=== PATIENT | female | born 1995 | race Caucasian/White ===

== ENCOUNTER 2016-12-30 17:02 | Emergency (ER) | payer OTHER ==
--- NOTE | 2016-12-30 17:58 | ER Document Report ---
ED GI/ - General Chief Complaint: Vaginal Itching Stated Complaint: ABDOMINAL PAIN Time Seen by Provider: 12/30/16 17:44 Mode of Arrival: Ambulatory Information source: Patient Notes: 21-year-old female presents to ED for complaint of nausea 3 days fever yesterday and the day before but not today and vaginal itching for 3 days. She states her last menstrual cycle was October 2016 but she has been trying to take test but can never get an answer on the test. TRAVEL OUTSIDE OF THE [place] IN LAST 30 DAYS: No - HPI Patient complains to provider of: Missed/Late menses, Other - Nausea and vaginal itching Onset: Other - 3 days Timing/Duration: Intermittent Quality of pain: No pain Pain Level: Denies Vaginal bleeding (Compared to normal period): None LMP: October 2016 Associated symptoms: Nausea, Other - Itching vaginal no pain Exacerbated by: Denies Relieved by: Denies Similar symptoms previously: Yes Recently seen / treated by doctor: No - Related Data Allergies/Adverse Reactions: codeine Allergy (Verified 12/30/16 17:22) cephalexin [From Keflex] Adverse Reaction (Severe, Verified 12/30/16 17:22) Past Medical History - General Information source: Patient - Social History Smoking Status: Never Smoker Cigarette use (# per day): No Chew tobacco use (# tins/day): No Smoking Education Provided: No Frequency of alcohol use: None Drug Abuse: None Lives with: Other - Retirement Family History: Arthritis, CAD, CVA, DM, Hyperlipidemia, Hypertension, Malignancy. denies: COPD, Thyroid Disfunction Patient has suicidal ideation: No Patient has homicidal ideation: No - Past Medical History Cardiac Medical History: Reports: None Pulmonary Medical History: Reports: None EENT Medical History: Reports: None Neurological Medical History: Reports: None Endocrine Medical History: Reports: None Renal/ Medical History: Reports: None Malignancy Medical History: Reports: None GI Medical History: Reports: None Musculoskeltal Medical History: Reports None Skin Medical History: Reports None Psychiatric Medical History: Reports: None Traumatic Medical History: Reports: None Infectious Medical History: Reports: None Surgical Hx: Negative Past Surgical History: Reports: None - Immunizations Hx Diphtheria, Pertussis, Tetanus Vaccination: Yes Review of Systems - Review of Systems Constitutional: No symptoms reported EENT: No symptoms reported Cardiovascular: No symptoms reported Respiratory: No symptoms reported Gastrointestinal: No symptoms reported Genitourinary: No symptoms reported Female Genitourinary: Last menstrual period - october 2016, Other - vaginal itching Musculoskeletal: No symptoms reported Skin: No symptoms reported Hematologic/Lymphatic: No symptoms reported Neurological/Psychological: No symptoms reported Physical Exam - Vital signs Vitals: Temp Pulse Resp BP Pulse Ox 98.8 F 88 18 128/80 H 100 12/30/16 17:24 12/30/16 17:24 12/30/16 17:24 12/30/16 17:24 12/30/16 17:24 Interpretation: Normal - General General appearance: Appears well, Alert - HEENT Head: Normocephalic, Atraumatic Eyes: Normal Pupils: PERRL - Respiratory Respiratory status: No respiratory distress Chest status: Nontender Breath sounds: Normal Chest palpation: Normal - Cardiovascular Rhythm: Regular Heart sounds: Normal auscultation Murmur: No - Abdominal Inspection: Normal Distension: No distension Bowel sounds: Normal Tenderness: Nontender Organomegaly: No organomegaly - Back Back: Normal, Nontender - Extremities General upper extremity: Normal inspection, Nontender, Normal color, Normal ROM , Normal temperature General lower extremity: Normal inspection, Nontender, Normal color, Normal ROM , Normal temperature, Normal weight bearing. No: Abdirahman's sign - Neurological Neuro grossly intact: Yes Cognition: Normal Orientation: AAOx4 [place] Coma Scale Eye Opening: Spontaneous [place] Coma Scale Verbal: Oriented [place] Coma Scale Motor: Obeys Commands [place] Coma Scale Total: 15 Speech: Normal Motor strength normal: LUE, RUE, LLE, RLE Sensory: Normal - Psychological Associated symptoms: Normal affect, Normal mood - Skin Skin Temperature: Warm Skin Moisture: Dry Skin Color: Normal Course - Vital Signs Vital signs: Temp Pulse Resp BP Pulse Ox 98.8 F 88 18 128/80 H 100 12/30/16 17:24 12/30/16 17:24 12/30/16 17:24 12/30/16 17:24 12/30/16 17:24 Discharge - Discharge Clinical Impression: Bacterial vaginosis Condition: Stable Disposition: HOME, SELF-CARE Additional Instructions: VAGINOSIS, BACTERIAL: Your exam shows you have bacterial vaginosis. This condition is due to an overgrowth of bacteria in the vagina. Symptoms may include vaginal itching or pain, a smelly discharge, and sometimes burning with urination. Normally this is not transmitted by sexual contact. Vaginosis can be treated with oral or topical antibiotics. Metronidazole ( Flagyl) pills are usually effective. Topical vaginal creams include Cleocin and Metro-Gel. You should avoid sexual contact until your symptoms are all better. Call the doctor if you develop pelvic pain, fever, or problems with urination, or if you don't improve as expected. METRONIDAZOLE: Metronidazole (Flagyl) has been prescribed. This medication is used to kill a type of bacteria called anaerobes, and protozoan parasites such as trichomonas and Giardia. Flagyl often causes a metallic taste in the mouth and mild nausea. Do not use alcohol in any form with Flagyl (including alcohol in medication elixirs). Flagyl interacts with alcohol to cause flushing, palpitations, headache, stomach cramps, and vomiting. Do not use Flagyl if you are taking Antabuse (disulfiram). Call the doctor at once if you develop rash, shortness of breath, itching, or lightheadedness. FOLLOW-UP CARE: If you have been referred to a physician for follow-up care, call the physician s office for an appointment as you were instructed or within the next two days. If you experience worsening or a significant change in your symptoms, notify the physician immediately or return to the Emergency Department at any time for re-evaluation. Prescriptions: Metronidazole [Flagyl 500 mg Tablet] 500 mg PO BID #14 tablet Forms: Return to Work
[2016-12-30 18:27] LABS: APPEARANCE,URINE SLIGHTLY-CLOUDY; BILIRUBIN,URINE NEGATIVE (NEGATIVE); GLUCOSE, URINE NEGATIVE (NEGATIVE); KETONES,URINE NEGATIVE (NEGATIVE); LEUKOCYTE ESTERASE,URINE NEGATIVE (NEGATIVE); NITRITE,URINE NEGATIVE (NEGATIVE); PROTEIN,URINE NEGATIVE (NEGATIVE); URINE SPECIFIC GRAVITY 1.013; UROBILINOGEN,URINE NEGATIVE mg/dL (<2.0)
[2016-12-30] MEDS ORDERED: METRONIDAZOLE 500 MG TABLET PO ONE (18:33)
[2016-12-30 21:23] VITALS: BP 121/59
== END 2016-12-30 19:30 | disposition home or self-care (01) ==
LOC: ER 17:02
DX: N76.0 Acute vaginitis (principal); B96.89 Other specified bacterial agents as the cause of diseases classified elsewhere; R11.0 Nausea; Z88.5 Allergy status to narcotic agent
CPT/HCPCS: 81001; 81025; 87210; 99284

== ENCOUNTER 2017-01-05 11:00 | Emergency (ER) | payer OTHER ==
--- NOTE | 2017-01-05 12:15 | RADIOLOGY REPORT (SQ) ---
EXAM DESCRIPTION: KNEE RIGHT 4 VIEWS COMPLETED DATE/TIME: 01/05/2017 12:07 pm REASON FOR STUDY: injury COMPARISON: None. NUMBER OF VIEWS: Four views. TECHNIQUE: AP, lateral, and both oblique radiographic images acquired of the right knee. LIMITATIONS: None. FINDINGS: MINERALIZATION: Normal. BONES: No acute fracture or dislocation. No worrisome bone lesions. JOINT: No effusion. SOFT TISSUES: No soft tissue swelling. No radio-opaque foreign body. OTHER: No other significant finding. IMPRESSION: NEGATIVE STUDY OF THE RIGHT KNEE. NO RADIOGRAPHIC EVIDENCE OF ACUTE INJURY. TECHNICAL DOCUMENTATION: JOB ID: [id number] [employer]- All Rights Reserved
--- NOTE | 2017-01-05 12:47 | ER Document Report ---
HPI - HPI Patient complains to provider of: right knee injury Onset: Just prior to arrival Onset/Duration: Sudden Quality of pain: Throbbing Severity: Severe Pain Level: 5 Context: Patient states she was reaching up for something and her right knee popped out of place. Has a history of right knee dislocations. Complains of pain, unable to bear weight. Patient states that she has a history of torn meniscus in the right knee which not been repaired because the tear was not bad enough per her orthopedist. Associated Symptoms: None Exacerbated by: Movement, Walking Relieved by: Denies Similar symptoms previously: Yes Recently seen / treated by doctor: No - ROS ROS below otherwise negative: Yes Systems Reviewed and Negative: Yes All other systems reviewed and negative - CONSTITUTIONAL Constitutional: DENIES: Fever - EENT EENT: DENIES: Congestion - NEURO Neurology: DENIES: Headache - CARDIOVASCULAR Cardiovascular: DENIES: Chest pain - RESPIRATORY Respiratory: DENIES: Trouble Breathing - GASTROINTESTINAL Gastrointestinal: DENIES: Abdominal Pain - URINARY Urinary: DENIES: Dysuria - REPRODUCTIVE Reproductive: DENIES: : - MUSCULOSKELETAL Musculoskeletal: REPORTS: Extremity pain - The - DERM Skin Color: Normal, [place] Skin Problems: None Past Medical History - General Information source: Patient - Social History Smoking Status: Never Smoker Chew tobacco use (# tins/day): No Frequency of alcohol use: None Drug Abuse: None Lives with: Family Family History: Arthritis, CAD, CVA, DM, Hyperlipidemia, Hypertension, Malignancy. denies: COPD, Thyroid Disfunction Patient has suicidal ideation: No Patient has homicidal ideation: No - Medical History Medical History: Negative Surgical Hx: Negative - Immunizations Hx Diphtheria, Pertussis, Tetanus Vaccination: Yes Vertical Provider Document - CONSTITUTIONAL Agree With Documented VS: Yes Exam Limitations: No Limitations General Appearance: WD/WN, Mild Distress - INFECTION CONTROL TRAVEL OUTSIDE OF THE [place] IN LAST 30 DAYS: No - HEENT HEENT: Atraumatic, Normocephalic - RESPIRATORY Respiratory: Breath Sounds Normal, No Respiratory Distress O2 Sat by Pulse Oximetry: 98 - CARDIOVASCULAR Cardiovascular: Regular Rate, Regular Rhythm - GI/ABDOMEN Gastrointestinal: Abdomen Soft - MUSCULOSKELETAL/EXTREMETIES Musculoskeletal/Extremeties: Tender - Right knee, medial and posterior, No Edema - NEURO Level of Consciousness: Awake, Alert, Appropriate - DERM Integumentary: Warm, Dry, No Rash Course - Re-evaluation Re-evalutation: 01/05/17 12:46 X-rays negative and discussed with patient. - Vital Signs Vital signs: Temp Pulse Resp BP Pulse Ox 98.6 F 95 16 139/79 H 98 01/05/17 11:32 01/05/17 11:32 01/05/17 11:32 01/05/17 11:32 01/05/17 11:32 Procedures - Immobilization Right Knee Pre-Proc Neuro Vasc Exam: Normal Immobilizer type: Crutches, Knee immobilizer Performed by: PCT Post-Proc Neuro Vasc Exam: Normal Alignment checked and good: Yes Discharge - Discharge Clinical Impression: Right knee sprain Qualifiers: Encounter type: initial encounter Involved ligament of knee: unspecified ligament Qualified Code(s): S83.91XA - Sprain of unspecified site of right knee , initial encounter Condition: Good Disposition: HOME, SELF-CARE Instructions: Use of Crutches ([facility]), Ice & Elevation ([facility]), Knee Immobilizing Splint ([facility]), Sprained Knee ([facility]) Additional Instructions: Ibuprofen 3 times a day for pain Keep knee iced and elevated, use crutches as much as possible follow-up with your primary care doctor or orthopedic for further evaluation if not better in 1 week return as needed Prescriptions: Ibuprofen 800 mg PO PRN PRN #20 tablet PRN Reason: Tramadol HCl [Ultram] 50 mg PO PRN PRN #10 tablet PRN Reason: Forms: Return to Work
[2017-01-05 13:11] VITALS: BP 122/70
== END 2017-01-05 13:15 | disposition home or self-care (01) ==
LOC: ER 11:00
DX: S83.91XA Sprain of unspecified site of right knee, initial encounter (principal); X58.XXXA Exposure to other specified factors, initial encounter
CPT/HCPCS: 99283; 73564; L1830

== ENCOUNTER 2017-01-10 18:38 | Emergency (ER) | payer OTHER ==
[2017-01-10] MEDS ORDERED: CYCLOBENZAPRINE HCL 10 MG TABLET PO ONE (19:37)
[2017-01-10] MEDS ORDERED: IBUPROFEN 800 MG TABLET PO ONE (19:37)
[2017-01-10 19:40] VITALS: BP 133/61
--- NOTE | 2017-01-10 19:43 | ER Document Report ---
ED Extremity Problem, Lower - General Chief Complaint: Knee Pain Stated Complaint: RIGHT KNEE PAIN Time Seen by Provider: 01/10/17 19:29 Mode of Arrival: Ambulatory Information source: Patient Notes: 21-year-old female presents to ED for continued pain in her right knee after she states she dislocated her kneecap on Wednesday. She was placed in a knee immobilizer on Wednesday and given ibuprofen and Ultram. She states these are not helping her pain she is having spasms. She states she knows she dislocated even though the x-ray was negative on Wednesday because she did this when she was 15 years old and it was the same feeling. She told people at work called 911 when she did not that she came to the emergency room. She states she has a appointment with orthopedics on Wednesday. TRAVEL OUTSIDE OF THE [place] IN LAST 30 DAYS: No - HPI Patient complains to provider of: Injury, Pain Location: Knee Occurred: Other - Wednesday Where: Work Onset/Duration: Intermittent Quality of pain: Other - Muscle spasms Severity: Moderate Pain Level: 4 Recent injury: Possibly Associated symptoms: [place] a pop, Painful ambulation Exacerbated by: Movement, Walking Relieved by: Nothing - Related Data Allergies/Adverse Reactions: codeine Allergy (Verified 12/30/16 17:22) cephalexin [From Keflex] Adverse Reaction (Severe, Verified 12/30/16 17:22) Past Medical History - General Information source: Patient - Social History Smoking Status: Never Smoker Cigarette use (# per day): No Chew tobacco use (# tins/day): No Smoking Education Provided: No Frequency of alcohol use: None Drug Abuse: None Occupation: server support technician Lives with: Family Family History: Arthritis, CAD, CVA, DM, Hyperlipidemia, Hypertension, Malignancy. denies: COPD, Thyroid Disfunction Patient has suicidal ideation: No Patient has homicidal ideation: No - Past Medical History Cardiac Medical History: Reports: None Pulmonary Medical History: Reports: None EENT Medical History: Reports: None Neurological Medical History: Reports: None Endocrine Medical History: Reports: None Renal/ Medical History: Reports: None Malignancy Medical History: Reports: None GI Medical History: Reports: None Musculoskeltal Medical History: Reports Hx Musculoskeletal Trauma - dislocated right patella when 15 according to pt Skin Medical History: Reports None Psychiatric Medical History: Reports: None Traumatic Medical History: Reports: None Infectious Medical History: Reports: None Surgical Hx: Negative Past Surgical History: Reports: None - Immunizations Hx Diphtheria, Pertussis, Tetanus Vaccination: Yes Review of Systems - Review of Systems Constitutional: No symptoms reported EENT: No symptoms reported Cardiovascular: No symptoms reported Respiratory: No symptoms reported Gastrointestinal: No symptoms reported Genitourinary: No symptoms reported Female Genitourinary: No symptoms reported Musculoskeletal: Other - right knee pain with muscle spasms Skin: No symptoms reported Hematologic/Lymphatic: No symptoms reported Neurological/Psychological: No symptoms reported -: Yes All other systems reviewed and negative Physical Exam - Vital signs Vitals: Temp Pulse Resp BP Pulse Ox 98.8 F 111 H 20 115/95 H 99 01/10/17 19:04 01/10/17 19:04 01/10/17 19:04 01/10/17 19:04 01/10/17 19:04 Interpretation: Normal - General General appearance: Appears well, Alert - HEENT Head: Normocephalic, Atraumatic Eyes: Normal Pupils: PERRL - Respiratory Respiratory status: No respiratory distress Chest status: Nontender Breath sounds: Normal Chest palpation: Normal - Cardiovascular Rhythm: Regular Heart sounds: Normal auscultation Murmur: No - Abdominal Inspection: Normal Distension: No distension Bowel sounds: Normal Tenderness: Nontender Organomegaly: No organomegaly - Back Back: Normal, Nontender - Extremities General upper extremity: Normal inspection, Nontender, Normal color, Normal ROM , Normal temperature General lower extremity: Normal inspection, Normal color, Normal ROM, Normal temperature, Normal weight bearing. No: Abdirahman's sign Knee: Tender, Pain with ROM, Patellar tendon intact, Popliteal fossa tender, Tender joint line. No: Unable to bear weight - walks with crutches and knee immobilizer she received on 01/05/17 - Neurological Neuro grossly intact: Yes Cognition: Normal Orientation: AAOx4 [place] Coma Scale Eye Opening: Spontaneous [place] Coma Scale Verbal: Oriented [place] Coma Scale Motor: Obeys Commands [place] Coma Scale Total: 15 Speech: Normal Motor strength normal: LUE, RUE, LLE, RLE Sensory: Normal - Psychological Associated symptoms: Normal affect, Normal mood - Skin Skin Temperature: Warm Skin Moisture: Dry Skin Color: Normal Course - Re-evaluation Re-evalutation: 01/10/17 19:55 Patient given ibuprofen and Flexeril in the ED and sent home with prescription of Flexeril. Patient has an appointment with orthopedics on Wednesday. Her x- ray on the was negative and states she states she has not had any new injury she is just having muscle spasms. - Vital Signs Vital signs: Temp Pulse Resp BP Pulse Ox 99.0 F 91 16 133/61 H 100 01/10/17 19:39 01/10/17 19:39 01/10/17 19:39 01/10/17 19:39 01/10/17 19:39 Discharge - Discharge Clinical Impression: Right knee pain Qualifiers: Chronicity: unspecified Qualified Code(s): M25.561 - Pain in right knee Condition: Stable Disposition: HOME, SELF-CARE Additional Instructions: You state you are still having pain in your right knee. You states you are taking your ibuprofen and Ultram and continue to have muscle spasms. You states she will wear in your knee immobilizer and continuing to have muscle spasms. He states you have an appointment with orthopedics on Wednesday. Continue taking your current medication wearing your immobilizer and using your crutches. I will have put you off work until after you see the orthopedics. And I will write you for small prescription of muscle relaxers ICE & ELEVATION: Apply ice packs frequently against the painful area. Many different schedules are recommended, such as "20 minutes on, 20 minutes off" or "one hour ice, two hours rest." If you need to work, you may need to go longer between ice treatments. You should plan to have the area ice packed AT LEAST one- fourth of the time. The ice should be applied over the wrap, tape, or splint, or over a layer of cloth -- not directly against the skin. Some ice bags have a built-in cloth and can be put directly on the skin. Your injured part should be elevated as much as possible over the next 48 hours. Try to keep the injury above the level of the heart. Avoid use of the injured area. Elevation and rest will decrease the swelling. USE OF [id number]-AUYIDWZ IBUPROFEN: Ibuprofen (Advil, Nuprin, Medipren, Motrin IB) is a medication for fever and pain control. In addition, it has anti- inflammatory effects which may be beneficial, especially in the treatment of injuries. It's best to take ibuprofen with food. Persons with ulcer disease or allergy to aspirin should notify their physician of this before taking ibuprofen. Ibuprofen can be given every four to six hours, for a total of four doses daily. Age Pain or fever dose Antiinflammatory dose 6-8 yr 200 mg (1 tab) 200 mg (1 tab) 9-11 yr 200 mg (1 tab) 200-400 mg (1-2 tab) 11-14 yr 200-400 mg (1-2 tab) 400 mg (2 tab) 15-adult 400 mg (2 tab) 600 mg (3 tab) Muscle Relaxers Muscle relaxing medications are usually prescribed for acute muscle spasm or injury to the neck and back. They are often combined with antiinflammatory pain medication for increased relief. You may stop the muscle relaxer when the pain and stiffness have improved. Start the medication again if spasms recur. Muscle relaxers may cause drowsiness, especially with the first dose. Do not operate machinery or drive while under the effects of the medication. Most muscle relaxers last up to 24 hours. Do not combine the medication with alcohol. FOLLOW-UP CARE: If you have been referred to a physician for follow-up care, call the physician s office for an appointment as you were instructed or within the next two days. If you experience worsening or a significant change in your symptoms, notify the physician immediately or return to the Emergency Department at any time for re-evaluation. Prescriptions: Cyclobenzaprine HCl [Flexeril 10 mg Tablet] 10 mg PO TIDP PRN #15 tab PRN Reason: Forms: Elevated Blood Pressure, Return to Work
== END 2017-01-10 20:08 | disposition home or self-care (01) ==
LOC: ER 18:38
DX: M25.561 Pain in right knee (principal)
CPT/HCPCS: 99283

== ENCOUNTER 2017-02-13 02:13 | Emergency (ER) | payer OTHER ==
[2017-02-13] MEDS ORDERED: AZITHROMYCIN 250 MG TABLET PO ONE ×2 (03:38→03:44)
[2017-02-13] MEDS ORDERED: BENZONATATE 100 MG CAPSULE PO ONE (03:44)
[2017-02-13] MEDS ORDERED: PROMETHAZINE HCL 25 MG TABLET PO ONE (03:44)
--- NOTE | 2017-02-13 03:46 | ER Document Report ---
ED General - General Chief Complaint: STD Exposure Stated Complaint: COUGH,STD CHECK Time Seen by Provider: 02/13/17 03:14 Notes: Patient is a 21-year-old female who presents with 2 distinct complaints. Her first complaint is that she has had a dry, nonproductive cough for the past 2 weeks. The cough is intermittent in nature. She has not tried anything to improve the cough. Nothing worsens the cough. Multiple sick contacts with same symptoms. She has had similar symptoms in the past with prior viral respiratory infections. She denies any fever or constitutional symptoms. No dyspnea. No pleuritic pain. No hemoptysis. She also complains that her significant other was cheating on her and she may have been exposed to sexual transmitted infection. She states that several days after learning this she began to feel that she was intermittent having vaginal itching and would like sexually transmitted infection testing. She has not seen her primary care doctor regarding the above concerns. TRAVEL OUTSIDE OF THE [place] IN LAST 30 DAYS: No - Related Data Allergies/Adverse Reactions: codeine Allergy (Verified 02/13/17 02:42) cephalexin [From Keflex] Adverse Reaction (Severe, Verified 02/13/17 02:42) Past Medical History - General Information source: Patient - Social History Smoking Status: Never Smoker Chew tobacco use (# tins/day): No Frequency of alcohol use: None Drug Abuse: None Lives with: Spouse/Significant other Family History: Arthritis, CAD, CVA, DM, Hyperlipidemia, Hypertension, Malignancy. denies: COPD, Thyroid Disfunction Renal/ Medical History: Denies: Hx Peritoneal Dialysis Musculoskeltal Medical History: Reports Hx Musculoskeletal Trauma - dislocated right patella when 15 according to pt Surgical Hx: Negative - Immunizations Hx Diphtheria, Pertussis, Tetanus Vaccination: Yes Review of Systems - Review of Systems Notes: Constitutional: Negative for fever. HENT: Negative for sore throat. Eyes: Negative for visual changes. Cardiovascular: Negative for chest pain. Respiratory: Negative for shortness of breath. Positive for cough Gastrointestinal: Negative for abdominal pain, vomiting or diarrhea. Genitourinary: Negative for dysuria. Positive for vaginal itching Musculoskeletal: Negative for back pain. Skin: Negative for rash. Neurological: Negative for headaches, weakness or numbness. 10 point ROS negative except as marked above and in HPI. Physical Exam - Vital signs Vitals: Temp Pulse Resp BP Pulse Ox 98.6 F 104 H 14 139/68 H 100 02/13/17 02:42 02/13/17 02:42 02/13/17 02:42 02/13/17 02:42 02/13/17 02:42 Interpretation: Tachycardic Notes: PHYSICAL EXAMINATION: GENERAL: Well-appearing, well-nourished and in no acute distress. HEAD: Atraumatic, normocephalic. EYES: Pupils equal round and reactive to light, extraocular movements intact, sclera anicteric, conjunctiva are normal. ENT: nares patent, oropharynx clear without exudates. Moist mucous membranes. NECK: Normal range of motion, supple without lymphadenopathy LUNGS: Breath sounds clear to auscultation bilaterally and equal. No wheezes rales or rhonchi. HEART: Regular rate and rhythm without murmurs ABDOMEN: Soft, nontender, normoactive bowel sounds. No guarding, no rebound. No masses appreciated. EXTREMITIES: Normal range of motion, no pitting or edema. No cyanosis. NEUROLOGICAL: No focal neurological deficits. Moves all extremities spontaneously and on command. PSYCH: Normal mood, normal affect. SKIN: Warm, Dry, normal turgor, no rashes or lesions noted. Course - Re-evaluation Re-evalutation: 02/13/17 03:45 Patient presents with a clinical history and exam most consistent with an acute viral bronchitis. Patient is overall well in appearance without tachypnea, hypoxemia, tachycardia, or difficulty with ambulation. Breath sounds are clear bilaterally. No fever. Patient does have additional signs of upper respiratory infection including nasal congestion, sore throat, and sinus pressure. No indication for labs or imaging. Will treat with Tessalon Perlsandra. Patient is also requesting STI testing due to concerns of possible exposure. I have encouraged her to follow-up with the health department and have offered testing for gonorrhea and chlamydia here. She has requested empiric treatment for these and due to a cephalexin allergy will be treated with a single dose of 2 g of azithromycin. At this time will discharge with return precautions and follow-up recommendations. Verbal discharge instructions given a the bedside and opportunity for questions given. Medication warnings reviewed. Patient is in agreement with this plan and has verbalized understanding of return precautions and the need for primary care follow-up in the next 24-72 hours. - Vital Signs Vital signs: Temp Pulse Resp BP Pulse Ox 98.6 F 104 H 16 139/68 H 100 02/13/17 02:42 02/13/17 02:42 02/13/17 02:43 02/13/17 02:42 02/13/17 02:42 Discharge - Discharge Clinical Impression: STI (sexually transmitted infection), Bronchitis Condition: Good Disposition: HOME, SELF-CARE Additional Instructions: You were seen for symptoms most consistent with bronchitis. This can take up to 12 weeks to fully resolve. This is generally due to a viral infection. Please follow-up with your primary doctor in the next 2-3 days. Return if you develop worsening cough, vomiting, fever >100.4, pass out, begin coughing blood, or have any other symptoms that are concerning to you. Please use the medications prescribed today as directed. Please follow-up at the local health department for STI testing. Address: [address] [place] [address] Hours: Wed-Wed 8am-4pm Th 12p-4p Wed 8a-4p Prescriptions: Benzonatate [Tessalon Perles 100 mg Capsule] 100 mg PO Q8HP PRN #40 capsule PRN Reason:
[2017-02-13 04:45] VITALS: BP 128/74
[2017-02-13 05:28] LABS: CHLAM PCR NOT DETECTED (NOT DETECT)
== END 2017-02-13 04:30 | disposition home or self-care (01) ==
LOC: ER 02:13
DX: J40 Bronchitis, not specified as acute or chronic (principal); A64 Unspecified sexually transmitted disease
CPT/HCPCS: 87491; 87591; 99283

== ENCOUNTER 2017-03-02 15:56 | Emergency (ER) | payer OTHER ==
--- NOTE | 2017-03-02 17:09 | ER Document Report ---
ED General - General Chief Complaint: Nausea/Vomiting Stated Complaint: NAUSEA,VAGINAL BLEEDING,ABDOMINAL PAIN Time Seen by Provider: 03/02/17 16:42 TRAVEL OUTSIDE OF THE [place] IN LAST 30 DAYS: No - HPI Notes: Patient is a 21-year-old female who presents to the ED complaining of intermittent nausea and vomiting in the mornings, positive test 1 week ago, and 3 episodes of spotting over the last week. Patient states that she has not filled up a tampon with the amount of bleeding that has come out. Patient states that this is her first and denies any previous miscarriages or abortions. Patient denies any smoking or IV drug use. She denies any significant past medical history. Patient states that she will have the nausea and vomiting in the mornings that will usually dissipate throughout the day. Patient currently does have some mild nausea without any vomiting. No other concerns or complaints at this time. She does not have an CERTIFIED TECHNICIAN. Denies any headache, fever, URI, sore throat, chest pain, palpitations, syncope , cough, shortness of breath, wheeze, dyspnea, abdominal pain, diarrhea, urinary retention, dysuria, hematuria, vaginal discharge/odor, or rash. - Related Data Allergies/Adverse Reactions: codeine Allergy (Verified 02/13/17 02:42) cephalexin [From Keflex] Adverse Reaction (Severe, Verified 02/13/17 02:42) Past Medical History - Social History Smoking Status: Never Smoker Family History: Arthritis, CAD, CVA, DM, Hyperlipidemia, Hypertension, Malignancy. denies: COPD, Thyroid Disfunction Renal/ Medical History: Denies: Hx Peritoneal Dialysis Musculoskeltal Medical History: Reports Hx Musculoskeletal Trauma - dislocated right patella when 15 according to pt - Immunizations Hx Diphtheria, Pertussis, Tetanus Vaccination: Yes Review of Systems - Review of Systems Notes: REVIEW OF SYSTEMS: CONSTITUTIONAL : Denies fever, chills, or sweats. Denies recent illness. EENT: Denies eye, ear, throat, or mouth pain or symptoms. Denies nasal or sinus congestion or discharge. Denies throat, tongue, or mouth swelling or difficulty swallowing. CARDIOVASCULAR: Denies chest pain. Denies palpitations or racing or irregular heart beat. Denies ankle edema. RESPIRATORY: Denies cough, cold, or chest congestion. Denies shortness of breath, difficulty breathing, or wheezing. GASTROINTESTINAL: see hpi GENITOURINARY: Denies difficulty urinating, painful urination, burning, frequency, blood in urine, or discharge. FEMALE GENITOURINARY: see hpi. MUSCULOSKELETAL: Denies back or neck pain or stiffness. Denies joint pain or swelling. SKIN: Denies rash, lesions or sores. HEMATOLOGIC : Denies easy bruising or bleeding. LYMPHATIC: Denies swollen, enlarged glands. NEUROLOGICAL: Denies confusion or altered mental status. Denies passing out or loss of consciousness. Denies dizziness or lightheadedness. Denies headache. Denies weakness or paralysis or loss of use of either side. Denies problems with gait or speech. Denies sensory loss, numbness, or tingling. ALL OTHER SYSTEMS REVIEWED AND NEGATIVE. Dictation was performed using [employer] voice recognition software Physical Exam - Vital signs Notes: PHYSICAL EXAMINATION: GENERAL: Well-appearing, well-nourished and in no acute distress. A&Ox4 NECK: Normal range of motion, supple without lymphadenopathy LUNGS: Breath sounds clear to auscultation bilaterally and equal. No wheezes rales or rhonchi. HEART: Regular rate and rhythm without murmurs, rubs, gallops. ABDOMEN: Soft, nontender, nondistended abdomen. No guarding, no rebound. No masses appreciated. Normal bowel sounds present. No CVA tenderness bilaterally. : Deferred. Extremities: No cyanosis, clubbing, or edema b/l. Peripheral pulses 2+. Capillary refill less than 3 seconds. NEUROLOGICAL: Normal speech, normal gait. Normal sensory, motor exams PSYCH: Normal mood, normal affect. SKIN: Warm, Dry, normal turgor, no rashes or lesions noted. Course - Re-evaluation Re-evalutation: 03/02/17 19:50 Patient is an afebrile, well-hydrated, 21-year-old female who presents the ED with dysfunctional uterine bleeding, nausea/vomiting, and iron deficiency anemia. Vitals are stable. PE is otherwise unremarkable. White blood cells are 13.5 which could be a result of her nausea/vomiting. Anemia appears stable from her last check last year. Iron and Colace were given p.o. today. Serum was negative. CMP was unremarkable as well as a urinalysis. Transvaginal ultrasound was unremarkable. Low suspicion/risk for acute appendicitis, bowel obstruction, acute cholecystitis, acute cholangitis, perforated diverticulitis, incarcerated hernia, pancreatitis, perforated ulcer, peritonitis, sepsis, pelvic inflammatory disease, ectopic , tubo- ovarian abscess, ovarian torsion, or other systemic emergent condition at this time. Patient is aware that her condition can change from initial presentation and she needs to monitor symptoms closely and seek medical attention if any acute changes. I will send her home with a prescription for iron and Colace as well as Zofran. Conservative measures otherwise for symptoms. Recheck with OBGYN in 3-5 days. Recheck with your PCM/women's clinic/health dept in 3-5 days. Return to the ED with any worsening/concerning symptoms otherwise as reviewed in discharge. Patient is in agreement. - Laboratory Result Diagrams: 03/02/17 16:55 03/02/17 16:55 Laboratory results interpreted by me: 03/02/17 16:55 WBC 13.4 H RBC 5.45 H Hgb 8.9 L Hct 30.6 L MCV 56 L MCH 16.4 L MCHC 29.2 L RDW 19.0 H Absolute Neutrophils 8.3 H Discharge - Discharge Clinical Impression: Dysfunctional uterine bleeding Iron deficiency anemia Qualifiers: Iron deficiency anemia type: unspecified iron deficiency Qualified Code(s): D50.9 - Iron deficiency anemia, unspecified Condition: Stable Disposition: HOME, SELF-CARE Instructions: Anemia, Iron Deficiency ([facility]), Dysfunctional Uterine Bleeding ( [facility]) Additional Instructions: Monitor for any acute changes in symptoms May continue to check urine test(s) over the next 2 weeks as precaution Maintain adequate fluid intake Take iron supplement daily with stool softener Increase fiber intake Recheck with PCM in 2-3 days Recheck with the women's clinic/Health department for recheck in 2-3 days as well Return to the ED with any worsening symptoms and/or development of fever, headache, chest pain, palpitations, syncope, shortness of breath, trouble breathing, abdominal pain, n/v/d, blood in stool/urine, trouble urinating, vaginal bleeding/odor/discharge, weakness, or other worsening symptoms that are concerning to you. Prescriptions: Docusate Sodium [Colace 100 mg Capsule] 100 mg PO DAILY #30 capsule Ferrous Sulfate 325 mg PO DAILY #30 tablet Ondansetron [Zofran Odt 4 mg Tablet] 1 - 2 tab PO Q4H PRN #15 tab.rapdis PRN Reason: For Nausea/Vomiting Referrals: HEALTH DEPT,[facility] [NO LOCAL MD] - Follow up as needed [facility] [Provider Group] - Follow up in 3-5 days
[2017-03-02] MEDS ORDERED: ONDANSETRON 4 MG TAB.RAPDIS PO ONE (17:10)
[2017-03-02 17:21] LABS: ABSOLUTE BASOPHILS # (AUTO) 0.1 10^3/uL (0.0-0.2); ABSOLUTE EOSINOPHILS # (AUTO) 0.1 10^3/uL (0.0-0.6); ABSOLUTE LYMPHOCYTES (AUTO) 3.7 10^3/uL (0.5-4.7); ABSOLUTE MONOCYTES (AUTO) 1.2 10^3/uL (0.1-1.4); ABSOLUTE NEUT (AUTO) 8.3 10^3/uL (1.7-8.2); BASOPHILS % (AUTO) 0.7 % (0-2); EOSINOPHILS % (AUTO) 0.9 % (0-6); HEMATOCRIT 30.6 % (36.0-47.0); HEMOGLOBIN 8.9 g/dL (12.0-15.5); HGB HCT DIFFERENCE -3.9; LYMPHOCYTES % (AUTO) 27.6 % (13-45); MEAN CORPUSCULAR HEMOGLOBIN 16.4 pg (27.0-33.4); MEAN CORPUSCULAR HGB CONC 29.2 g/dL (32.0-36.0); MONOCYTES % (AUTO) 8.7 % (3-13); RED BLOOD COUNT 5.45 10^6/uL (3.72-5.28); SEGMENTED NEUTROPHILS % (AUTO) 62.1 % (42-78); WHITE BLOOD COUNT 13.4 10^3/uL (4.0-10.5)
[2017-03-02 17:25] LABS: APPEARANCE,URINE SLIGHTLY-CLOUDY; BILIRUBIN,URINE NEGATIVE (NEGATIVE); GLUCOSE, URINE NEGATIVE (NEGATIVE); KETONES,URINE NEGATIVE (NEGATIVE); LEUKOCYTE ESTERASE,URINE NEGATIVE (NEGATIVE); NITRITE,URINE NEGATIVE (NEGATIVE); PROTEIN,URINE NEGATIVE (NEGATIVE); URINE SPECIFIC GRAVITY 1.013; UROBILINOGEN,URINE NEGATIVE mg/dL (<2.0)
[2017-03-02 17:26] LABS: ALANINE AMINOTRANSFERASE 23 U/L (9-52); ALBUMIN 4.6 g/dL (3.5-5.0); ALKALINE PHOSPHATASE 72 U/L (38-126); ANION GAP 13 (5-19); ASPARTATE AMINO TRANSFERASE 17 U/L (14-36); BILIRUBIN,DIRECT 0.3 mg/dL (0.0-0.4); BILIRUBIN,TOTAL 0.3 mg/dL (0.2-1.3); BLOOD UREA NITROGEN 9 mg/dL (7-20); CALCIUM 9.4 mg/dL (8.4-10.2); CARBON DIOXIDE 26 mmol/L (22-30); CHLORIDE 102 mmol/L (98-107); GLUCOSE 82 mg/dL (75-110); SODIUM 141.2 mmol/L (137-145); TOTAL PROTEIN 7.5 g/dL (6.3-8.2)
[2017-03-02 17:58] LABS: TARGET CELLS SLIGHT; TEAR DROP CELLS 1+
[2017-03-02 17:59] LABS: TOXIC GRANULATION SLIGHT
[2017-03-02 18:00] LABS: ANISOCYTOSIS 2+; HYPOCHROMASIA 2+; OVALOCYTES 2+; POIKILOCYTOSIS 2+; POLYCHROMASIA SLIGHT
[2017-03-02 18:01] LABS: MEAN CORPUSCULAR VOLUME 56 fl (80-97)
[2017-03-02] MEDS ORDERED: FERROUS SULFATE 325 MG TABLET PO ONE (18:44)
[2017-03-02] MEDS ORDERED: DOCUSATE SODIUM 100 MG CAPSULE PO ONE (18:44)
--- NOTE | 2017-03-02 19:44 | RADIOLOGY REPORT (SQ) ---
EXAM DESCRIPTION: U/S NON OB PEL TV W/DOPPLER COMPLETED DATE/TIME: 03/02/2017 7:15 pm REASON FOR STUDY: vaginal bleeding, + test COMPARISON: None. TECHNIQUE: Dynamic and static grayscale images acquired of the pelvis via transvaginal approach and recorded on PACS. Additional selected color Doppler and spectral images recorded. LIMITATIONS: None. FINDINGS: UTERUS: Contour normal. No mass. ENDOMETRIAL STRIPE: No focal or generalized thickening. No masses. CERVIX: No nabothian cysts. RIGHT OVARY: No abnormal masses. RIGHT OVARY DOPPLER: Normal arterial vascular flow without evidence for torsion. LEFT OVARY: No abnormal masses. LEFT OVARY DOPPLER: Normal arterial vascular flow without evidence for torsion. FREE FLUID: None noted. OTHER: No other significant finding. MEASUREMENTS: UTERUS: 7.7 x 5.7 x 3.6 cm ENDOMETRIAL STRIPE: 10 mm RIGHT OVARY: 3.2 x 1.8 x 1.4 cm LEFT OVARY: 5.1 x 2.2 x 2.9 cm IMPRESSION: NORMAL TRANSVAGINAL PELVIC ULTRASOUND. TECHNICAL DOCUMENTATION: JOB ID: [id number]- All Rights Reserved
[2017-03-02 20:05] VITALS: BP 128/72
[2017-03-03 13:36] LABS: PATH REVIEW PATHOLOGIST REVIEWED
== END 2017-03-02 20:02 | disposition home or self-care (01) ==
LOC: ER 15:56
DX: N93.8 Other specified abnormal uterine and vaginal bleeding (principal); D50.9 Iron deficiency anemia, unspecified; R11.2 Nausea with vomiting, unspecified; R10.9 Unspecified abdominal pain; Z88.6 Allergy status to analgesic agent
CPT/HCPCS: 99284; 86900; 86901; 36415; 84702; 85025; 80053; 81001; 76830; 93976; S0119

== ENCOUNTER 2017-09-24 22:52 | Emergency (ER) | payer OTHER ==
[2017-09-24] MEDS ORDERED: ONDANSETRON HCL INJ/PF 4 MG/2 ML SDV IV ONE (23:27)
[2017-09-24] MEDS ORDERED: NORMAL SALINE 1000 ML 1,000 ML IV ONE (23:27)
[2017-09-25 00:09] LABS: ABSOLUTE BASOPHILS # (AUTO) 0.1 10^3/uL (0.0-0.2); ABSOLUTE EOSINOPHILS # (AUTO) 0.3 10^3/uL (0.0-0.6); ABSOLUTE LYMPHOCYTES (AUTO) 4.3 10^3/uL (0.5-4.7); ABSOLUTE NEUT (AUTO) 7.2 10^3/uL (1.7-8.2); BASOPHILS % (AUTO) 0.4 % (0-2); EOSINOPHILS % (AUTO) 2.5 % (0-6); HEMATOCRIT 35.1 % (36.0-47.0); HEMOGLOBIN 11.2 g/dL (12.0-15.5); LYMPHOCYTES % (AUTO) 33.3 % (13-45); MEAN CORPUSCULAR HGB CONC 31.8 g/dL (32.0-36.0); MEAN CORPUSCULAR VOLUME 69 fl (80-97); MONOCYTES % (AUTO) 7.9 % (3-13); PLATELET COUNT 363 10^3/uL (150-450); RED BLOOD COUNT 5.08 10^6/uL (3.72-5.28); RED CELL DISTRIBUTION WIDTH 18.5 % (11.5-14.0); SEGMENTED NEUTROPHILS % (AUTO) 55.9 % (42-78); TOTAL CELLS COUNTED % (AUTO) 100 %; WHITE BLOOD COUNT 12.9 10^3/uL (4.0-10.5)
[2017-09-25 00:21] LABS: ALANINE AMINOTRANSFERASE 21 U/L (9-52); ALBUMIN 3.8 g/dL (3.5-5.0); ALKALINE PHOSPHATASE 82 U/L (38-126); ANION GAP 9 (5-19); ASPARTATE AMINO TRANSFERASE 18 U/L (14-36); BLOOD UREA NITROGEN 9 mg/dL (7-20); CALCIUM 9.7 mg/dL (8.4-10.2); CARBON DIOXIDE 27 mmol/L (22-30); CHLORIDE 106 mmol/L (98-107); GLUCOSE 98 mg/dL (75-110); LIPASE 47.7 U/L (23-300); POTASSIUM 3.9 mmol/L (3.6-5.0); SODIUM 142.3 mmol/L (137-145); TOTAL PROTEIN 6.7 g/dL (6.3-8.2)
[2017-09-25 00:22] LABS: BILIRUBIN,TOTAL < 0.1 mg/dL (0.2-1.3)
[2017-09-25 00:27] LABS: AMORPHOUS SEDIMENT,URINE TRACE /HPF; APPEARANCE,URINE CLOUDY; BILIRUBIN,URINE NEGATIVE (NEGATIVE); COLOR,URINE YELLOW; GLUCOSE, URINE NEGATIVE (NEGATIVE); KETONES,URINE NEGATIVE (NEGATIVE); LEUKOCYTE ESTERASE,URINE NEGATIVE (NEGATIVE); NITRITE,URINE NEGATIVE (NEGATIVE); PROTEIN,URINE NEGATIVE (NEGATIVE); URINE SPECIFIC GRAVITY 1.019; UROBILINOGEN,URINE NEGATIVE mg/dL (<2.0)
--- NOTE | 2017-09-25 00:54 | ER Document Report ---
ED General - General Chief Complaint: Nausea/Vomiting Stated Complaint: NAUSEA/VOMITING Time Seen by Provider: 09/24/17 23:27 Notes: Patient is a 22-year-old female without past medical history, no prior surgical history, no chronic medication use who presents with 2 weeks of intermittent nausea and several episodes of vomiting although she does note that she continues to be able to tolerate oral intake. She states that her symptoms seem to have been worsening since onset. She denies any associated abdominal pain. Nothing seems to improve or worsen her symptoms. She denies a history of similar symptoms in the past. She has not seen her general doctor regarding today's concerns. Her last menstrual period was approximately 5-6 weeks ago. She is uncertain whether or not she is . TRAVEL OUTSIDE OF THE [place] IN LAST 30 DAYS: No - Related Data Allergies/Adverse Reactions: codeine Allergy (Verified 02/13/17 02:42) cephalexin [From Keflex] Adverse Reaction (Severe, Verified 02/13/17 02:42) Past Medical History - General Information source: Patient - Social History Smoking Status: Never Smoker Chew tobacco use (# tins/day): No Frequency of alcohol use: Social Drug Abuse: None Lives with: Spouse/Significant other Family History: Arthritis, CAD, CVA, DM, Hyperlipidemia, Hypertension, Malignancy. denies: COPD, Thyroid Disfunction Patient has suicidal ideation: No Patient has homicidal ideation: No Renal/ Medical History: Denies: Hx Peritoneal Dialysis Musculoskeltal Medical History: Reports Hx Musculoskeletal Trauma - dislocated right patella when 15 according to pt - Immunizations Hx Diphtheria, Pertussis, Tetanus Vaccination: Yes Review of Systems - Review of Systems Notes: Constitutional: Negative for fever. HENT: Negative for sore throat. Eyes: Negative for visual changes. Cardiovascular: Negative for chest pain. Respiratory: Negative for shortness of breath. Gastrointestinal: Positive for nausea and vomiting. Negative for abdominal pain. Genitourinary: Negative for dysuria. Musculoskeletal: Negative for back pain. Skin: Negative for rash. Neurological: Negative for headaches, weakness or numbness. 10 point ROS negative except as marked above and in HPI. Physical Exam - Vital signs Vitals: Pulse Ox 99 09/24/17 23:22 Interpretation: Normal Notes: PHYSICAL EXAMINATION: GENERAL: Well-appearing, well-nourished and in no acute distress. HEAD: Atraumatic, normocephalic. EYES: Pupils equal round and reactive to light, extraocular movements intact, sclera anicteric, conjunctiva are normal. ENT: nares patent, oropharynx clear without exudates. Moist mucous membranes. NECK: Normal range of motion, supple without lymphadenopathy LUNGS: Breath sounds clear to auscultation bilaterally and equal. No wheezes rales or rhonchi. HEART: Regular rate and rhythm without murmurs ABDOMEN: Soft, nontender, normoactive bowel sounds. No guarding, no rebound. No masses appreciated. EXTREMITIES: Normal range of motion, no pitting or edema. No cyanosis. NEUROLOGICAL: No focal neurological deficits. Moves all extremities spontaneously and on command. PSYCH: Normal mood, normal affect. SKIN: Warm, Dry, normal turgor, no rashes or lesions noted. Course - Re-evaluation Re-evalutation: 09/25/17 00:54 Patient presents with complaints of nausea and intermittent vomiting for the past 2 weeks but denies any abdominal pain. She states that she is also late for her menstrual cycle. Her labs are unremarkable and her test is negative. She is very clear to deny any abdominal pain. She has no abdominal pain on examination. The lack of pain makes any acute biliary pathology, pancreatitis, bowel obstruction, colitis, appendicitis, TOA, or pelvic inflammatory disease highly unlikely. Labs unremarkable. Urinalysis is negative. Exact etiology of her symptoms is unclear but may be related to upper intestinal irritation. Patient has tolerated oral intake without difficulty. Will start the patient on antiemetics and famotidine to trial and see if this improves her symptoms. At this time will discharge with return precautions and follow-up recommendations. Verbal discharge instructions given a the bedside and opportunity for questions given. Medication warnings reviewed. Patient is in agreement with this plan and has verbalized understanding of return precautions and the need for primary care follow-up in the next 24-72 hours. - Vital Signs Vital signs: Temp Pulse Resp BP Pulse Ox 98.6 F 16 101/62 98 09/25/17 01:20 09/25/17 01:20 09/25/17 01:11 09/25/17 01:11 - Laboratory Result Diagrams: 09/24/17 23:55 09/24/17 23:55 Laboratory results interpreted by me: 05/04/18 05/04/18 23:55 23:55 WBC 12.9 H Hgb 11.2 L Hct 35.1 L MCV 69 L MCH 22.0 L MCHC 31.8 L RDW 18.5 H Total Bilirubin < 0.1 L Discharge - Discharge Clinical Impression: Nausea and vomiting Qualifiers: Vomiting type: unspecified Vomiting Intractability: non-intractable Qualified Code(s): R11.2 - Nausea with vomiting, unspecified Condition: Good Disposition: HOME, SELF-CARE Additional Instructions: You have been seen in the Emergency Department (ED) today for nausea and vomiting. Your work up today has not shown a clear cause for your symptoms. You have been prescribed Zofran; please use as prescribed as needed for your nausea. Please also begin famotidine 40 mg twice daily. Follow up with your doctor as soon as possible regarding today's emergent visit and your symptoms of nausea. Return to the Emergency Department (ED) if you develop abdominal pain, bloody vomiting, bloody diarrhea, if you are unable to tolerate fluids due to vomiting , or if you develop other symptoms that concern you. Prescriptions: Famotidine 40 mg PO BID #60 tablet Ondansetron [Zofran Odt 4 mg Tablet] 1 - 2 tab PO Q4H PRN #15 tab.rapdis PRN Reason: For Nausea/Vomiting
[2017-09-25] MEDS ORDERED: FAMOTIDINE 20 MG TABLET PO ONE (00:58)
[2017-09-25] MEDS ORDERED: ONDANSETRON ODT 4 MG TAB (6 TAB/ER DISP) PO PRN (00:58)
[2017-09-25 01:20] VITALS: BP 101/62
== END 2017-09-25 01:21 | disposition home or self-care (01) ==
LOC: ER 22:52
DX: R11.2 Nausea with vomiting, unspecified (principal); Z32.02 Encounter for pregnancy test, result negative; Z88.5 Allergy status to narcotic agent
CPT/HCPCS: 99284; 96361; 96374; 36415; 84702; 83690; 85025; 80053; 81001; J2405; J7030

== ENCOUNTER 2018-03-05 12:47 | Emergency (ER) | payer OTHER ==
--- NOTE | 2018-03-05 13:04 | ER Document Report ---
ED Medical Screen (RME) - General Chief Complaint: Rectal Bleeding Stated Complaint: ABNORMAL BLEEDING Time Seen by Provider: 03/05/18 13:03 Mode of Arrival: Ambulatory Information source: Patient TRAVEL OUTSIDE OF THE [place] IN LAST 30 DAYS: No - HPI Patient complains to provider of: rectal bleeding Onset: Just prior to arrival - pt. with episode of rectall bleeding earlier today - Related Data Allergies/Adverse Reactions: codeine Allergy (Verified 03/05/18 12:48) cephalexin [From Keflex] Adverse Reaction (Severe, Verified 03/05/18 12:48) Past Medical History Renal/ Medical History: Denies: Hx Peritoneal Dialysis Musculoskeltal Medical History: Reports Hx Musculoskeletal Trauma - dislocated right patella when 15 according to pt - Immunizations Hx Diphtheria, Pertussis, Tetanus Vaccination: Yes Physical Exam - Vital signs Vitals: Temp Pulse Resp BP Pulse Ox 98.9 F 76 16 120/68 98 03/05/18 12:51 03/05/18 12:51 03/05/18 12:51 03/05/18 12:51 03/05/18 12:51 Course - Vital Signs Vital signs: Temp Pulse Resp BP Pulse Ox 98.9 F 76 16 120/68 98 03/05/18 12:51 03/05/18 12:51 03/05/18 12:51 03/05/18 12:51 03/05/18 12:51
[2018-03-05 13:37] LABS: ABSOLUTE EOSINOPHILS # (AUTO) 0.2 10^3/uL (0.0-0.6); ABSOLUTE LYMPHOCYTES (AUTO) 2.9 10^3/uL (0.5-4.7); ABSOLUTE MONOCYTES (AUTO) 0.9 10^3/uL (0.1-1.4); ABSOLUTE NEUT (AUTO) 6.6 10^3/uL (1.7-8.2); BASOPHILS % (AUTO) 0.3 % (0-2); EOSINOPHILS % (AUTO) 1.5 % (0-6); HEMOGLOBIN 11.9 g/dL (12.0-15.5); LYMPHOCYTES % (AUTO) 27.6 % (13-45); MEAN CORPUSCULAR HEMOGLOBIN 22.4 pg (27.0-33.4); MEAN CORPUSCULAR HGB CONC 32.3 g/dL (32.0-36.0); MEAN CORPUSCULAR VOLUME 69 fl (80-97); MONOCYTES % (AUTO) 8.2 % (3-13); PLATELET COUNT 406 10^3/uL (150-450); RED BLOOD COUNT 5.34 10^6/uL (3.72-5.28); RED CELL DISTRIBUTION WIDTH 16.7 % (11.5-14.0); SEGMENTED NEUTROPHILS % (AUTO) 62.4 % (42-78); TOTAL CELLS COUNTED % (AUTO) 100 %; WHITE BLOOD COUNT 10.6 10^3/uL (4.0-10.5)
[2018-03-05 14:02] LABS: ALANINE AMINOTRANSFERASE 24 U/L (9-52); ALBUMIN 4.2 g/dL (3.5-5.0); ALKALINE PHOSPHATASE 84 U/L (38-126); ANION GAP 10 (5-19); ASPARTATE AMINO TRANSFERASE 20 U/L (14-36); BILIRUBIN,DIRECT 0.1 mg/dL (0.0-0.4); BILIRUBIN,TOTAL 0.4 mg/dL (0.2-1.3); BLOOD UREA NITROGEN 9 mg/dL (7-20); CALCIUM 9.7 mg/dL (8.4-10.2); CARBON DIOXIDE 26 mmol/L (22-30); CHLORIDE 104 mmol/L (98-107); GLUCOSE 82 mg/dL (75-110); POTASSIUM 4.5 mmol/L (3.6-5.0); SODIUM 139.7 mmol/L (137-145); TOTAL PROTEIN 7.3 g/dL (6.3-8.2)
--- NOTE | 2018-03-05 14:28 | ER Document Report ---
ED GI Bleed / Rectal Pain - General Chief Complaint: Rectal Bleeding Stated Complaint: ABNORMAL BLEEDING Time Seen by Provider: 03/05/18 13:03 Mode of Arrival: Ambulatory Information source: Patient Notes: 22-year-old female presents to ED for complaint of 1 episode of rectal bleeding today. She states she has never had rectal bleeding before. She states it was a small amount with no clots and was only x1. Patient is alert and oriented respirations regular and unlabored speaking in full sentences no acute distress walking with a even steady gait. TRAVEL OUTSIDE OF THE [place] IN LAST 30 DAYS: No - HPI Patient complains to provider of: Bright red bld from rect. - with stool Onset: This morning Quality of pain: No pain Severity of symptoms: None Pain Level: Denies Emesis description: Bright red blood Rectal bleeding: Bleeding w/o stool Associated symptoms: None Exacerbated by: Denies Relieved by: Denies Similar symptoms previously: No Recently seen / treated by doctor: No - Related Data Allergies/Adverse Reactions: codeine Allergy (Verified 03/05/18 12:48) cephalexin [From Keflex] Adverse Reaction (Severe, Verified 03/05/18 12:48) Past Medical History - General Information source: Patient - Social History Smoking Status: Never Smoker Cigarette use (# per day): No Chew tobacco use (# tins/day): No Smoking Education Provided: No Frequency of alcohol use: Occasional Drug Abuse: None Lives with: Family Family History: Arthritis, CAD, CVA, DM, Hyperlipidemia, Hypertension, Malignancy. denies: COPD, Thyroid Disfunction Patient has suicidal ideation: No Patient has homicidal ideation: No - Past Medical History Cardiac Medical History: Reports: None Pulmonary Medical History: Reports: None EENT Medical History: Reports: None Neurological Medical History: Reports: None Endocrine Medical History: Reports: None Renal/ Medical History: Reports: None Malignancy Medical History: Reports: None GI Medical History: Reports: None Musculoskeletal Medical History: Reports Hx Musculoskeletal Trauma - dislocated right patella when 15 according to pt Skin Medical History: Reports None Psychiatric Medical History: Reports: None Traumatic Medical History: Reports: None Infectious Medical History: Reports: None Surgical Hx: Negative Past Surgical History: Reports: None - Immunizations Immunizations up to date: Yes Hx Diphtheria, Pertussis, Tetanus Vaccination: Yes Review of Systems - Review of Systems Constitutional: No symptoms reported EENT: No symptoms reported Cardiovascular: No symptoms reported Respiratory: No symptoms reported Gastrointestinal: Rectal bleeding - x1 today Genitourinary: No symptoms reported Female Genitourinary: No symptoms reported Musculoskeletal: No symptoms reported Skin: No symptoms reported Hematologic/Lymphatic: No symptoms reported Neurological/Psychological: No symptoms reported -: Yes All other systems reviewed and negative Physical Exam - Vital signs Vitals: Temp Pulse Resp BP Pulse Ox 98.9 F 76 16 120/68 98 03/05/18 12:51 03/05/18 12:51 03/05/18 12:51 03/05/18 12:51 03/05/18 12:51 Interpretation: Normal - General General appearance: Appears well, Alert - HEENT Head: Normocephalic, Atraumatic Eyes: Normal Pupils: PERRL - Respiratory Respiratory status: No respiratory distress Chest status: Nontender Breath sounds: Normal Chest palpation: Normal - Cardiovascular Rhythm: Regular Heart sounds: Normal auscultation Murmur: No - Abdominal Inspection: Normal Distension: No distension Bowel sounds: Normal Tenderness: Nontender Organomegaly: No organomegaly - Back Back: Normal, Nontender - Extremities General upper extremity: Normal inspection, Nontender, Normal color, Normal ROM , Normal temperature General lower extremity: Normal inspection, Nontender, Normal color, Normal ROM , Normal temperature, Normal weight bearing. No: Abdirahman's sign - Neurological Neuro grossly intact: Yes Cognition: Normal Orientation: AAOx4 [place] Coma Scale Eye Opening: Spontaneous [place] Coma Scale Verbal: Oriented [place] Coma Scale Motor: Obeys Commands Evette Coma Scale Total: 15 Speech: Normal Motor strength normal: LUE, RUE, LLE, RLE Sensory: Normal - Psychological Associated symptoms: Normal affect, Normal mood - Skin Skin Temperature: Warm Skin Moisture: Dry Skin Color: Normal Course - Re-evaluation Re-evalutation: 03/06/18 00:45 Patient's labs were discussed with her before she was discharged. Her occult blood was negative. Her CBC was stable. Patient was instructed to follow-up with her primary care doctor and to monitor her stools for any further bleeding and return to the ED if they continue. Patient was able to verbalize understanding and agreement with treatment plan before discharge. - Vital Signs Vital signs: Temp Pulse Resp BP Pulse Ox 98.1 F 72 16 123/75 99 03/05/18 15:44 03/05/18 15:44 03/05/18 15:44 03/05/18 15:44 03/05/18 15:44 - Laboratory Result Diagrams: 03/05/18 13:15 03/05/18 13:15 Laboratory results interpreted by me: 03/05/18 03/05/18 03/05/18 13:15 13:15 14:30 WBC 10.6 H RBC 5.34 H Hgb 11.9 L MCV 69 L MCH 22.4 L RDW 16.7 H Creatinine 0.50 L Urine Urobilinogen 2.0 H Discharge - Discharge Clinical Impression: Rectal bleed Condition: Stable Disposition: HOME, SELF-CARE Instructions: Family Physicians / Practices Additional Instructions: Rectal Bleeding, Unclear Cause No definite cause has been found for the rectal bleeding you have experienced. Among the possible causes are internal or external hemorrhoids ( internal hemorrhoids can't be felt on the outside), an anal fissure (a crack at the anal ring), infections or inflammatory diseases of the colon, tumors or polyps, or diverticula (diverticula are outpouchings from the colon wall). To establish a cause for your bleeding (or at least make certain there is no serious problem such as a tumor), further evaluation will be necessary. This may include special X-rays, or passage of a scope up into the colon. Be sure to keep your follow-up appointment. Should you develop brisk bleeding, abdominal pain, fever, lightheadedness, or fever, call the doctor or return at once. Discussed your labs with you and given you a written report of your labs. Your H&H is within normal limits. There is no blood in your stools on your Hemoccult stool. Your urine is negative and you are not . Please call your primary doctor and schedule a follow-up appointment with your primary doctor. If you have a large amount of bleeding return to the ED immediately for reevaluation. Use stool softeners for the next couple days to ensure that you do not have hemorrhoids internal. FOLLOW-UP CARE: If you have been referred to a physician for follow-up care, call the physician s office for an appointment as you were instructed or within the next two days. If you experience worsening or a significant change in your symptoms, notify the physician immediately or return to the Emergency Department at any time for re-evaluation. Forms: Return to Work
[2018-03-05 15:36] LABS: AMORPHOUS SEDIMENT,URINE TRACE /HPF; APPEARANCE,URINE CLOUDY; BILIRUBIN,URINE NEGATIVE (NEGATIVE); COLOR,URINE YELLOW; GLUCOSE, URINE NEGATIVE (NEGATIVE); KETONES,URINE NEGATIVE (NEGATIVE); LEUKOCYTE ESTERASE,URINE NEGATIVE (NEGATIVE); NITRITE,URINE NEGATIVE (NEGATIVE); PROTEIN,URINE NEGATIVE (NEGATIVE); URINE SPECIFIC GRAVITY 1.023
[2018-03-05 15:47] VITALS: BP 123/75
== END 2018-03-05 15:47 | disposition home or self-care (01) ==
LOC: ER 12:47
DX: K62.5 Hemorrhage of anus and rectum (principal); Z88.3 Allergy status to other anti-infective agents; Z88.6 Allergy status to analgesic agent
CPT/HCPCS: 36415; 80053; 81001; 81025; 82272; 85025; 99283

== ENCOUNTER 2018-07-23 14:56 | Emergency (ER) | payer OTHER ==
--- NOTE | 2018-07-23 15:12 | ER Document Report ---
ED Medical Screen (RME) - General Chief Complaint: Vaginal Bleeding Stated Complaint: SPOTTING WITH Time Seen by Provider: 07/23/18 15:09 Mode of Arrival: Ambulatory Information source: Patient TRAVEL OUTSIDE OF THE [place] IN LAST 30 DAYS: No - HPI Patient complains to provider of: ; bleeding Onset: Just prior to arrival - pt. is G3 approx 6 weeks along with onset of vaginal spotting earlier this afternoon - Related Data Allergies/Adverse Reactions: codeine Allergy (Verified 03/05/18 12:48) cephalexin [From Keflex] Adverse Reaction (Severe, Verified 03/05/18 12:48) Past Medical History Renal/ Medical History: Denies: Hx Peritoneal Dialysis Musculoskeltal Medical History: Reports Hx Musculoskeletal Trauma - dislocated right patella when 15 according to pt - Immunizations Immunizations up to date: Yes Hx Diphtheria, Pertussis, Tetanus Vaccination: Yes Physical Exam - Vital signs Vitals: Temp Pulse Resp BP Pulse Ox 99.6 F 82 15 146/65 H 98 07/23/18 15:00 07/23/18 15:00 07/23/18 15:00 07/23/18 15:00 07/23/18 15:00 Course - Vital Signs Vital signs: Temp Pulse Resp BP Pulse Ox 99.6 F 82 15 146/65 H 98 07/23/18 15:00 07/23/18 15:00 07/23/18 15:00 07/23/18 15:00 07/23/18 15:00
[2018-07-23 15:49] LABS: ABSOLUTE BASOPHILS # (AUTO) 0.1 10^3/uL (0.0-0.2); ABSOLUTE EOSINOPHILS # (AUTO) 0.2 10^3/uL (0.0-0.6); ABSOLUTE LYMPHOCYTES (AUTO) 3.5 10^3/uL (0.5-4.7); ABSOLUTE MONOCYTES (AUTO) 0.9 10^3/uL (0.1-1.4); ABSOLUTE NEUT (AUTO) 8.4 10^3/uL (1.7-8.2); BASOPHILS % (AUTO) 0.4 % (0-2); EOSINOPHILS % (AUTO) 1.5 % (0-6); HEMATOCRIT 35.4 % (36.0-47.0); HEMOGLOBIN 11.5 g/dL (12.0-15.5); LYMPHOCYTES % (AUTO) 26.6 % (13-45); MEAN CORPUSCULAR HEMOGLOBIN 22.9 pg (27.0-33.4); MEAN CORPUSCULAR HGB CONC 32.4 g/dL (32.0-36.0); MEAN CORPUSCULAR VOLUME 71 fl (80-97); MONOCYTES % (AUTO) 7.1 % (3-13); PLATELET COUNT 407 10^3/uL (150-450); RED BLOOD COUNT 5.01 10^6/uL (3.72-5.28); RED CELL DISTRIBUTION WIDTH 16.8 % (11.5-14.0); SEGMENTED NEUTROPHILS % (AUTO) 64.4 % (42-78); TOTAL CELLS COUNTED % (AUTO) 100 %; WHITE BLOOD COUNT 13.1 10^3/uL (4.0-10.5)
[2018-07-23 15:56] LABS: APPEARANCE,URINE SLIGHTLY-CLOUDY; BILIRUBIN,URINE NEGATIVE (NEGATIVE); COLOR,URINE YELLOW; GLUCOSE, URINE NEGATIVE (NEGATIVE); KETONES,URINE NEGATIVE (NEGATIVE); LEUKOCYTE ESTERASE,URINE SMALL (NEGATIVE); NITRITE,URINE NEGATIVE (NEGATIVE); PROTEIN,URINE NEGATIVE (NEGATIVE); URINE SPECIFIC GRAVITY 1.021; UROBILINOGEN,URINE NEGATIVE mg/dL (<2.0)
[2018-07-23 15:59] LABS: ALANINE AMINOTRANSFERASE 34 U/L (9-52); ALBUMIN 4.2 g/dL (3.5-5.0); ALKALINE PHOSPHATASE 92 U/L (38-126); ANION GAP 8 (5-19); ASPARTATE AMINO TRANSFERASE 27 U/L (14-36); BILIRUBIN,DIRECT 0.1 mg/dL (0.0-0.4); BILIRUBIN,TOTAL 0.2 mg/dL (0.2-1.3); BLOOD UREA NITROGEN 7 mg/dL (7-20); CALCIUM 9.7 mg/dL (8.4-10.2); CARBON DIOXIDE 27 mmol/L (22-30); CHLORIDE 104 mmol/L (98-107); GLUCOSE 82 mg/dL (75-110); POTASSIUM 4.4 mmol/L (3.6-5.0); SODIUM 138.5 mmol/L (137-145); TOTAL PROTEIN 7.1 g/dL (6.3-8.2)
--- NOTE | 2018-07-23 16:41 | ER Document Report ---
ED General - General Chief Complaint: Vaginal Bleeding Stated Complaint: SPOTTING WITH Time Seen by Provider: 07/23/18 15:09 Mode of Arrival: Ambulatory Information source: Patient TRAVEL OUTSIDE OF THE [place] IN LAST 30 DAYS: No - HPI Patient complains to provider of: Spotting in early Onset: Just prior to arrival Onset/Duration: Intermittent Quality of pain: No pain Severity: None Associated symptoms: None Exacerbated by: Denies Relieved by: Denies Similar symptoms previously: No Recently seen / treated by doctor: No Notes: 22-year-old female coming in today with chief complaint of spotting. She is approximately 6 weeks along in her third . 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 She has not had any evaluation of her miscarriages thus far. She is not complaining of any uterine cramping. She is O+ blood type from previous draws on record in this hospital. - Related Data Allergies/Adverse Reactions: codeine Allergy (Verified 03/05/18 12:48) cephalexin [From Keflex] Adverse Reaction (Severe, Verified 03/05/18 12:48) Past Medical History - General Information source: Patient Last Menstrual Period: 06/09/18 - Social History Smoking Status: Unknown if Ever Smoked Chew tobacco use (# tins/day): No Frequency of alcohol use: None Drug Abuse: None Family History: Reviewed & Not Pertinent, Arthritis, CAD, CVA, DM, Hyperlipidemia, Hypertension, Malignancy. denies: COPD, Thyroid Disfunction Patient has suicidal ideation: No Patient has homicidal ideation: No Renal/ Medical History: Denies: Hx Peritoneal Dialysis Musculoskeletal Medical History: Reports Hx Musculoskeletal Trauma - dislocated right patella when 15 according to pt - Immunizations Immunizations up to date: Yes Hx Diphtheria, Pertussis, Tetanus Vaccination: Yes Review of Systems - Review of Systems Notes: Constitutional: No fevers. No chills. EENT: No eye redness. No eye pain. No ear pain. No sore throat. Cardiovascular: No chest pain. No palpitations. Respiratory: No cough. No shortness of breath. No respiratory distress. Gastrointestinal: No abdominal pain. No nausea, vomiting, or diarrhea. Genitourinary: Positive for vaginal bleeding Musculoskeletal: Atraumatic. No swelling. No deformities. Skin: No rash or lesions. Lymphatic: No swollen lymph nodes. Neurologic: No headache. No syncope. Psychiatric: No suicidal or homicidal ideation. Physical Exam - Vital signs Vitals: Temp Pulse Resp BP Pulse Ox 99.6 F 82 15 146/65 H 98 07/23/18 15:00 07/23/18 15:00 07/23/18 15:00 07/23/18 15:00 07/23/18 15:00 - Notes Notes: General: Well-developed, well-nourished. In no acute distress. Non-toxic appearing. Cardiac: Well-perfused. Regular rate and rhythm. No murmurs, rubs, or gallops. Pulmonary: No respiratory distress. No cyanosis. Bilateral lung fiels are clear to auscultation. Abdominal: Non-distended. Non-rigid. Bowels sounds are present in all four quadrants. No guarding or rebound. HEENT: Head is atraumatic. Conjunctivae not reddened. No tearing. PERRL. EOMI. Orbits atraumatic. No periorbital swelling or erythema. Oropharynx is without erythema, swelling, or exudates. Neck: Supple. No adenopathy. No meningismus. Dermatologic: Warm with good turgor. No rash. Atraumatic. Chest: Atraumatic. No chest wall tenderness to palpation. Musculoskeletal: Moves all extremities well. No range of motion deficits. no muscular or joint tenderness. No paraspinal muscle tenderness. no midline spinal tenderness or step-off. Genitourinary: External genitalia normal. Speculum exam reveals closed cervix. No evidence of active bleeding. No evidence of any bleeding actually. Bimanual exam reveals no adnexal masses or tenderness. No cervical motion tenderness present. Typical cultures were collected. Neurologic: No gross neurologic deficits. Psychiatric: Normal mood. Course - Re-evaluation Re-evalutation: 07/23/18 16:41 I will go ahead and do a pelvic exam with the usual cultures. We will have to correlate hCG and ultrasound findings. Patient has O+ blood type and will not need RhoGam. 07/23/18 17:52 Patient has a probable intrauterine gestation per ultrasound. HCG is 5948. Pelvic exam does not reveal any active bleeding. Her cervix is closed. Will call this threatened . Has an appointment in 12 days with her bakery helper. Told her if bleeding gets worse or anything concerning happens to come back to us in the meantime. Otherwise follow-up with OB. Incidental finding of right ovarian mass which is believed to be a hemorrhagic cyst but OB will need to characterize further. - Vital Signs Vital signs: Temp Pulse Resp BP Pulse Ox 99.6 F 82 15 146/65 H 98 07/23/18 15:00 07/23/18 15:00 07/23/18 15:00 07/23/18 15:00 07/23/18 15:00 - Laboratory Result Diagrams: 07/23/18 15:33 07/23/18 15:33 Laboratory results interpreted by me: 07/23/18 07/23/18 07/23/18 15:33 15:33 15:33 WBC 13.1 H Hgb 11.5 L Hct 35.4 L MCV 71 L MCH 22.9 L RDW 16.8 H Absolute Neutrophils 8.4 H Creatinine 0.43 L Beta HCG, Quant 5948.10 H Ur Leukocyte Esterase SMALL H - Diagnostic Test Radiology reviewed: Reports reviewed Discharge - Discharge Clinical Impression: Threatened , Ovarian mass Condition: Fair Disposition: HOME, SELF-CARE Instructions: Bleeding During Early ([facility]), Ob-[facility]time Caption[facility] Doctors, Threatened Miscarriage ([facility]) Additional Instructions: If your bleeding gets worse before you see her bakery helper, return to the ED for reevaluation. An incidental finding of a right ovarian mass mass was noted on your ultrasound. We discussed this while you are here. It needs to be investigated further by OB once you get into see them. Referrals: NIK CONKLIN, DO [Primary Care Provider] - Follow up as needed OB, YOUR [Other] - Follow up as needed
--- NOTE | 2018-07-23 16:54 | RADIOLOGY REPORT (SQ) ---
EXAM DESCRIPTION: U/S OB TRANSVAG W/DOPPLER COMPLETED DATE/TIME: 07/23/2018 4:36 pm REASON FOR STUDY: ; bleeding COMPARISON: 03/02/2017. TECHNIQUE: Transvaginal static and realtime grayscale images acquired of the pelvis. Additional gala cted spectral and color Doppler images recorded. All images stored on PACs. CLINICAL AGE: 6 week 2 day. bHCG: Not available. LIMITATIONS: None. FINDINGS: UTERUS: No masses. No anomalies. GESTATIONAL SAC: Normal shape. Measurements correspond with a 5 week 4 day gestation. YOLK SAC: Yes. POLE: None present. RIGHT ADNEXA: There is a heterogenous hyperechoic mass which either arises from the ovary or or is lo cated immediately adjacent to the ovary, measuring 3.4 x 3.9 cm. No adnexal free fluid. LEFT ADNEXA: Normal ovary with normal vascular flow. No adnexal free fluid. No adnexal masses. FREE FLUID: None. OTHER: No other significant finding. IMPRESSION: 1. POSSIBLE EARLY INTRAUTERINE . MEASUREMENTS CORRESPOND WITH A 5 WEEK 4 DAY GESTATION. CONSIDER F/U BHCG AND/OR ULTRASOUND FOR VERIFICATION AND TO EXCLUDE ECTOPIC . 2. 3.9 CM HETEROGENOUS HYPERECHOIC MASS ASSOCIATED WITH THE RIGHT OVARY. THIS COULD BE A LARGE HEMOR RHAGIC CYST OR HEMORRHAGIC CORPUS LUTEUM. AN OVARIAN TUMOR CANNOT BE EXCLUDED, ALTHOUGH THE PATIENT DID HAVE A NORMAL PELVIC ULTRASOUND IN FEBRUARY 2017. Trimester of : First - 0 to 13 weeks. TECHNICAL DOCUMENTATION: JOB ID: [id number] [employer]- All Rights Reserved Reading location - IP/workstation name: [email or web address]
[2018-07-23 18:11] LABS: T.VAGINALIS (WET MOUNT) NO TRICHOMONAS SEEN; YEAST (WET MOUNT) NO YEAST SEEN
[2018-07-23 18:12] LABS: RBCS (WET MOUNT) FEW RBCS SEEN; WBCS (WET MOUNT) FEW WBCS SEEN
[2018-07-23 18:16] VITALS: BP 142/85
[2018-07-23 19:39] LABS: CHLAM PCR NOT DETECTED (NOT DETECT); GON PCR NOT DETECTED (NOT DETECT)
== END 2018-07-23 18:15 | disposition home or self-care (01) ==
LOC: ER 14:56
DX: O20.0 Threatened abortion (principal); O26.891 Other specified pregnancy related conditions, first trimester; N83.9 Noninflammatory disorder of ovary, fallopian tube and broad ligament, unspecified; Z3A.01 Less than 8 weeks gestation of pregnancy; Z87.59 Personal history of other complications of pregnancy, childbirth and the puerperium; Z88.5 Allergy status to narcotic agent
CPT/HCPCS: 36415; 76817; 80053; 81001; 84702; 85025; 87210; 87491; 87591; 93976; 99284

== ENCOUNTER 2018-09-15 21:28 | Emergency (ER) | payer OTHER ==
[2018-09-15 21:54] VITALS: BP 149/88
== END 2018-09-16 00:40 | disposition left against medical advice (07) ==
LOC: ER 21:28
DX: Z53.21 Procedure and treatment not carried out due to patient leaving prior to being seen by health care provider (principal)

== ENCOUNTER 2019-02-21 21:04 | Outpatient (CLI) | payer OTHER ==
[2019-02-21 21:58] LABS: APPEARANCE,URINE SLIGHTLY-CLOUDY; BILIRUBIN,URINE SMALL (NEGATIVE); COLOR,URINE YELLOW; GLUCOSE, URINE 50 mg/dL (NEGATIVE); KETONES,URINE TRACE mg/dL (NEGATIVE); LEUKOCYTE ESTERASE,URINE NEGATIVE (NEGATIVE); NITRITE,URINE NEGATIVE (NEGATIVE); PROTEIN,URINE 30 mg/dL (NEGATIVE); URINE SPECIFIC GRAVITY 1.026; UROBILINOGEN,URINE NEGATIVE mg/dL (<2.0)
[2019-02-21 22:12] LABS: URINE AMPHETAMINES SCREEN NEGATIVE; URINE BARBITURATES SCREEN NEGATIVE; URINE BENZODIAZEPINES SCREEN NEGATIVE; URINE COCAINE SCREEN NEGATIVE; URINE MARIJUANA (THC) SCREEN NEGATIVE; URINE METHADONE SCREEN NEGATIVE; URINE PHENCYCLIDINE SCREEN NEGATIVE
[2019-02-21] MEDS ORDERED: HYDROXYZINE PAMOATE 50 MG CAPSULE PO ONE (22:20)
[2019-02-21] MEDS ORDERED: HYDROXYZINE PAMOATE 50 MG CAPSULE ONE (22:21)
--- NOTE | 2019-02-21 22:34 | Non Stress Test Report ---
Non Stress Test Datetime Report Generated by CPN: 02/21/2019 22:34 DEMOGRAPHIC EGA NST: 35.3 INDICATION Indication for Study: Ordered by Provider Indication for Study (NST) Other: LC MONITORING Monitor Explained: Monitor Explained; Test Explained; Patient Verbalized Understanding Time on Monitor: 02/21/2019 21:27 Time off Monitor: 02/21/2019 22:24 NST Duration: 57 NST INTERVENTIONS NST Interventions: PO Hydration; Reposition Patient Physician Notified NST: Dr. Bhargav BABY A: [id number] BABY A Movement : Present Contraction Frequency : none noted FHR Baseline : 150 Accelerations : 15X15 Decelerations : None Variability : Moderate 6-25bpm NST Review: Meets Criteria for Reactive NST NST Review and Verified By : ASHER Lewis Results: Reactive NST REPORT Report Trigger: Send Report
== END 2019-02-21 22:38 | disposition home or self-care (01) ==
LOC: LC 21:04
PROVIDERS: ATTEND Obstetrics & Gynecology
PROC: 4A1HXCZ Monitoring of Products of Conception, Cardiac Rate, External Approach (ICD-10-PCS; principal; 2019-02-21)
DX: O47.03 False labor before 37 completed weeks of gestation, third trimester (principal); Z3A.35 35 weeks gestation of pregnancy
CPT/HCPCS: 59025; 80307; 81001

== ENCOUNTER 2019-03-27 16:48 | Outpatient (CLI) | payer OTHER | END 2019-03-27 17:56 | disposition home or self-care (01) | LOC: LC 16:48 | PROVIDERS: ATTEND Obstetrics & Gynecology | PROC: 4A1HXCZ Monitoring of Products of Conception, Cardiac Rate, External Approach (ICD-10-PCS; principal; 2019-03-27) | DX: O48.0 Post-term pregnancy (principal); Z3A.40 40 weeks gestation of pregnancy | CPT/HCPCS: 59025 ==

== ENCOUNTER 2019-03-29 07:44 | Inpatient (IN) | payer OTHER ==
--- NOTE | 2019-03-29 07:54 | Non Stress Test Report ---
Non Stress Test Datetime Report Generated by CPN: 03/29/2019 07:54 DEMOGRAPHIC EGA NST: 40.2 INDICATION Indication for Study: Ordered by Provider MONITORING Monitor Explained: Monitor Explained; Test Explained; Patient Verbalized Understanding Time on Monitor: 03/27/2019 16:55 Time off Monitor: 03/27/2019 17:53 NST Duration: 58 NST INTERVENTIONS NST Interventions: PO Hydration BABY A: [id number] BABY A Movement : Present Contraction Frequency : 0 FHR Baseline : 135 Accelerations : 15X15 Decelerations : None Variability : Moderate 6-25bpm NST Review: Meets Criteria for Reactive NST NST Review and Verified By : SAutry NST Results: Reactive NST REPORT Report Trigger: Send Report
[2019-03-29 09:10] LABS: APPEARANCE,URINE CLEAR; BILIRUBIN,URINE NEGATIVE (NEGATIVE); COLOR,URINE YELLOW; GLUCOSE, URINE NEGATIVE (NEGATIVE); KETONES,URINE NEGATIVE (NEGATIVE); LEUKOCYTE ESTERASE,URINE NEGATIVE (NEGATIVE); NITRITE,URINE NEGATIVE (NEGATIVE); PROTEIN,URINE NEGATIVE (NEGATIVE); URINE SPECIFIC GRAVITY 1.011; UROBILINOGEN,URINE NEGATIVE mg/dL (<2.0)
[2019-03-29 09:40] LABS: URINE AMPHETAMINES SCREEN NEGATIVE; URINE BARBITURATES SCREEN NEGATIVE; URINE BENZODIAZEPINES SCREEN NEGATIVE; URINE COCAINE SCREEN NEGATIVE; URINE MARIJUANA (THC) SCREEN NEGATIVE; URINE METHADONE SCREEN NEGATIVE; URINE PHENCYCLIDINE SCREEN NEGATIVE
--- NOTE | 2019-03-29 09:57 | Admission Physical ---
Datetime Report Generated by CPN: 03/29/2019 09:56 CURRENT ADMISSION Hx Assessment: The History has been Reviewed and is Current Chief Complaint: Suspected Ruptured Membranes Indication for Induction: Not Applicable Admit Impression : Term, Intrauterine ; No Active Labor; Ruptured Membranes Admit Plan: Admit to Unit; Initiate Labor Protocol ALLERGIES Medication Allergies: Yes Medication Allergies: codeine (03/27/2019); cephalexin/SV (03/27/2019) Latex: No Latex Allergies OBSTETRICAL HISTORY EDC: 03/25/2019 00:00 : 4 Para: 0 Term: 0 : 0 SAB: 3 IAB: 0 Ectopic: 0 Livin Cesareans: 0 VBACs: 0 Multiple Births: 0 Gestational Diabetes: No Rh Sensitization: No Incompetent Cervix: No RIYA: No Infertility: No ART Treatment: No Uterine Anomaly: No IUGR: No Hx Previous C/S: No Macrosomia: No Hx Loss/Stillborn: Yes PIH: No Hx : No Placenta Previa/Abruption: No Depression/PP Depression: No PTL/PROM: No Post Hemorrhage: No Current Procedures: Ultrasound; NST Obstetrical History Comments: G1 G2 G3 G4-Current SEE RECORDS Alcohol: No Marijuana : No Cocaine: No Other Illicit Drugs: No Cigarettes: Never Smoker. [id number] MEDICAL HISTORY Diabetes: No Blood Transfusion: No Pulmonary Disease (Asthma, TB): No Breast Disease: No Hypertension: No Lining Ironer Surgery: No Heart Disease: No Hosp/Surgery: No Autoimmune Disorder: No Anesthetic Complications: No Kidney Disease: No Abnormal Pap Smear: No Neuro/Epilepsy: No Psychiatric Disorders: No Other Medical Diseases: No Hepatitis/Liver Disease: No Significant Family History: No Varicosities/Phlebitis: No Trauma/Violence : No Thyroid Dysfunction: No INFECTIOUS HISTORY Gonorrhea: No Genital Herpes: No Chlamydia: No Tuberculosis: No Syphilis: No Hepatitis: No HIV/AIDS Exposure: No Rash or Viral Illness: No HPV: No PHYSICAL EXAM General: Normal Neurologic: Normal Thyroid: Deferred Heart: Normal Lungs: Normal Breast: Normal Back: Normal Abdomen: Normal Genitourinary Exam: Normal Extremities: Normal DTRs: Normal Physical Exam Comments: cervical exam by RN Vital Signs: Reviewed; Within Normal Limits VAGINAL EXAM Dilatation: 2 Effacement: 70 Station: -1 Contraction Comments: irregular MEMBRANES Membranes: Ruptured Amniotic Fluid Color: Clear FETUS A EGA: 40.4 FHR- Baseline: 130 Variability: Moderate 6-25bpm Accelerations: 15X15 Decelerations: None FHR Category: Category I Admit Comment: 23yo @ 40w4d into L_D with SROM @ 0700 today. Pt is O pos, RI, Varicella non-immune, GBS neg. complicated by obesity, elevated early 1hr GTT with finger sticks instead of 3hr testing that pt. reported normal but not stated in records (pt. transfered into our clinic at 36w with hgb a1c of 5.0 on 03/27 and denies GDM) Pt. with significant medical hx of viral meningitis in 2012. Reactive NST on admission, will allow to walk x1hr then reassess for need for augmentation but starting to contract on her own at this time. PLANS FOR LABOR AND DELIVERY Labor and Delivery: None Pain Management: Medications Feeding Preference: Breast Benefit of Breast Feed Discussed: Yes Circumcision: N/A INFORMED CONSENT Assignment: Megan Calderon MD Signature: with User ID: Ken : with User ID: [email or web address]
[2019-03-29 10:32] LABS: ABSOLUTE BASOPHILS # (AUTO) 0.1 10^3/uL (0.0-0.2); ABSOLUTE EOSINOPHILS # (AUTO) 0.1 10^3/uL (0.0-0.6); ABSOLUTE MONOCYTES (AUTO) 0.9 10^3/uL (0.1-1.4); ABSOLUTE NEUT (AUTO) 11.7 10^3/uL (1.7-8.2); BASOPHILS % (AUTO) 0.4 % (0-2); EOSINOPHILS % (AUTO) 0.5 % (0-6); HEMATOCRIT 28.1 % (36.0-47.0); HEMOGLOBIN 8.6 g/dL (12.0-15.5); LYMPHOCYTES % (AUTO) 13.7 % (13-45); MEAN CORPUSCULAR HEMOGLOBIN 18.1 pg (27.0-33.4); MEAN CORPUSCULAR HGB CONC 30.6 g/dL (32.0-36.0); MONOCYTES % (AUTO) 6.2 % (3-13); PLATELET COUNT 371 10^3/uL (150-450); RED BLOOD COUNT 4.77 10^6/uL (3.72-5.28); RED CELL DISTRIBUTION WIDTH 20.3 % (11.5-14.0); SEGMENTED NEUTROPHILS % (AUTO) 79.2 % (42-78); TOTAL CELLS COUNTED % (AUTO) 100 %; WHITE BLOOD COUNT 14.8 10^3/uL (4.0-10.5)
[2019-03-29 11:11] LABS: ANISOCYTOSIS 2+; HYPOCHROMASIA 2+; MEAN CORPUSCULAR VOLUME 59 fl (80-97); OVALOCYTES 1+; POIKILOCYTOSIS 1+; POLYCHROMASIA 1+; SCHISTOCYTES SLIGHT; TEAR DROP CELLS 1+
[2019-03-29 11:12] LABS: PLATELET COMMENT ADEQUATE
[2019-03-29] MEDS ORDERED: PROMETHAZINE HCL INJ 25 MG/1 ML VIAL ONE (11:40)
[2019-03-29] MEDS ORDERED: NALBUPHINE HCL INJ 10 MG/1 ML AMPULE ONE (11:40)
[2019-03-29] MEDS ORDERED: NALBUPHINE HCL INJ 10 MG/1 ML AMPULE INJ ONE (12:03)
[2019-03-29] MEDS ORDERED: PROMETHAZINE HCL INJ 25 MG/1 ML VIAL IV ONE (12:03)
[2019-03-29] MEDS ORDERED: FENTANYL/BUPIVACAINE/NS/PF 300 MCG/150 ML RTUINJ EPI ONE (14:20)
[2019-03-29] MEDS ORDERED: EPHEDRINE SULFATE INJ 50 MG/1 ML AMPULE ONE (14:20)
[2019-03-29] MEDS ORDERED: BUPIVACAINE HCL 0.25 % INJ/PF (2.5 MG/1 ML) 30 ML VIAL ONE (14:20)
[2019-03-29] MEDS ORDERED: RINGERS SOLUTION,LACTATED 1,000 ML IV PRN (15:41)
[2019-03-29] MEDS ORDERED: OXYTOCIN/NORMAL SALINE 20 UNIT/1,000 ML RTUINJ ONE (16:25)
[2019-03-29] MEDS ORDERED: OXYTOCIN/NORMAL SALINE 20 UNIT/1,000 ML RTUINJ IV PRN ×2 (16:29→20:42)
[2019-03-29] MEDS ORDERED: MISOPROSTOL 0.2 MG TABLET ONE (16:30)
[2019-03-29] MEDS ORDERED: LIDOCAINE 1% INJ-PF (10 MG/ML) 30 ML SDV ONE (16:30)
[2019-03-29] MEDS ORDERED: DIPHENHYDRAMINE HCL 50 MG/ML VIAL ONE (18:35)
[2019-03-29] MEDS ORDERED: LIDOCAINE 2% INJ-PF (20 MG/ML) 10 ML AMPUL ONE (18:43)
[2019-03-29] MEDS ORDERED: DIPHENHYDRAMINE HCL 50 MG/ML VIAL IV ONE (18:44)
[2019-03-29] MEDS ORDERED: ONDANSETRON HCL INJ/PF 4 MG/2 ML SDV IV PRN (20:03)
[2019-03-29] MEDS ORDERED: PROMETHAZINE HCL 25 MG SUPP.RECT PR PRN (20:42)
[2019-03-29] MEDS ORDERED: PROMETHAZINE HCL 25 MG TABLET PO PRN (20:42)
[2019-03-29] MEDS ORDERED: PROMETHAZINE HCL INJ 25 MG/1 ML VIAL IV PRN (20:42)
[2019-03-29] MEDS ORDERED: NA PHOS,M-B/NA PHOS,DI-BA (ADULT) 133 ML ENEMA PR PRN (20:42)
[2019-03-29] MEDS ORDERED: PSEUDOEPHEDRINE HCL 30 MG TABLET PO PRN (20:42)
[2019-03-29] MEDS ORDERED: DIBUCAINE 1% OINTMENT 56 GM TP PRN (20:42)
[2019-03-29] MEDS ORDERED: MEASLES,MUMPS&RUBELLA VACC/PF 0.5 ML VIAL SUBCUT PRN (20:42)
[2019-03-29] MEDS ORDERED: BENZOCAINE/MENTHOL AEROSOL SPRAY 56 ML TOP PRN (20:42)
[2019-03-29] MEDS ORDERED: ACETAMINOPHEN 325 MG TABLET PO PRN (20:42)
[2019-03-29] MEDS ORDERED: DIPHENHYDRAMINE HCL 25 MG CAPSULE PO PRN (20:42)
[2019-03-29] MEDS ORDERED: ACETAMINOPHEN WITH CODEINE #3 TABLET PO PRN ×2 (20:42)
[2019-03-29] MEDS ORDERED: ZOLPIDEM TARTRATE 5 MG TABLET PO PRN (20:42)
[2019-03-29] MEDS ORDERED: DIPH/PERTUSS(ACELL)/TETANUS VAC/PF 0.5 ML SYR (>=10YO) IM PRN (20:42)
[2019-03-29] MEDS ORDERED: MAGNESIUM HYDROXIDE SUSP 30 ML UDCUP PO PRN (20:42)
[2019-03-29] MEDS ORDERED: GLYCERIN/WITCH HAZEL LEAF 1 EACH MED..WIPE TP PRN (20:42)
[2019-03-29] MEDS: IBUPROFEN 800 MG TABLET PO SCH (22:31)
[2019-03-29] MEDS: FAMOTIDINE 20 MG TABLET PO SCH (22:31)
--- NOTE | 2019-03-29 22:31 | Delivery Summary ---
Del Sum A-C Datetime Report Generated by CPN: 03/29/2019 22:31 DELIVERY PERSONNEL DELIVERY PERSONNEL: [id number] Delivery Doctor:: Megan Calderon MD Anesthesiologist:: Ede Iqbal MD Labor and Delivery Nurse:: Maggi Alberto RNsite leasing agent Nurse:: Nancy Clarke RN Nursery Nurse:: Olga Lidia Molina RN Commercial Counsel/CONVERTING SUPERVISOR: Halle Nelson ST MATERNAL INFORMATION Delivery Anesthesia: Epidural Medications After Delivery: Pitocin Drip 20 Units/1000ml NSS Estimated Blood Loss (ml): 150 Delivery QBL: 150 Delivery QBL Comment: 150 delivery 50 recovery total 200 QBL Maternal Complications: None Provider Comments: VFI delivered in [place] presentation. no nuchal cord. shoulders and body delivered without difficulty. Cord doubly clamped and cut and to maternal abdomen for NRP. Placenta delivered intact spontaneously. 1st degree perineal laceration repaired with good hemostasis. Mother and baby stable upon provider leaving the room. LABOR SUMMARY EDC: 03/25/2019 00:00 No. Babies in Womb: 1 Attempted: No Labor Anesthesia: Epidural LABOR INFORMATION Reason for Induction: Not Applicable Onset of Labor: 03/29/2019 18:00 Complete Dilatation: 03/29/2019 19:58 Oxytocin: Augmentation Group B Beta Strep: negative Antibiotics # of Doses: 0 Antibiotics Time of Last Dose: N/A Name of Antibiotic Given: N/A Steroids Given: None Reason Steroids Not Administered: Not Applicable MEMBRANES Membranes Rupture Method: Spontaneous Rupture of Membranes: 03/29/2019 07:00 Length of Rupture (hr): 13.27 Amniotic Fluid Color: Clear Amniotic Fluid Amount: Small Amniotic Fluid Odor: Normal STAGES OF LABOR Stage 1 hr: 1 Stage 1 min: 58 Stage 2 hr: 0 Stage 2 min: 18 Stage 3 hr: 0 Stage 3 min: 4 Total Time in Labor hr: 2 Total Time in Labor min: 20 VAGINAL DELIVERY Episiotomy: None Laceration #1: Perineal Laceration Extension #1: First Degree Laceration Repair: Yes Laceration Repair Note: 1st degree perineal laceration repaired with good hemostasis. Sponge Count Correct: Yes Sharps Count Correct: Yes CSECTION DELIVERY Primary Indication: N/A Secondary Indication: N/A CSection Incidence: N/A Labor: N/A Elective: N/A CSection Incision: N/A BABY A INFORMATION Infant Delivery Date/Time: 03/29/2019 20:16 Method of Delivery: Vaginal Born in Route : No : N/A Forceps: N/A Vacuum Extraction: N/A Shoulder Dystocia : No PRESENTATION/POSITION BABY A Presentation: Cephalic Cephalic Presentation: Vertex Vertex Position: Left Occipital Anterior Breech Presentation: N/A PLACENTA INFORMATION BABY A Placenta Delivery Time : 03/29/2019 20:20 Placenta Method of Delivery: Spontaneous Placenta Status: Delivered SCORES BABY A Heart Rate 1 min: >100 bpm Resp Effort 1 min: Slow, Irregular Reflex Irritability 1 min: Cough or Sneeze or Pulls Away Muscle Tone 1 min: Active Motion Color 1 min: Blue/Pale Resuscitation Effort 1 min: Tactile Stimulation SCORE 1 MIN: 7 Heart Rate 5 min: >100 bpm Resp Effort 5 min: Slow, Irregular Reflex Irritability 5 min: Cough or Sneeze or Pulls Away Muscle Tone 5 min: Active Motion Color 5 min: Body [place], Extremities Blue SCORE 5 MIN: 8 INFORMATION BABY A Gestational Age at Delivery: 40.4 Gestational Status: Full Term- 39- 40.6 Weeks Outcome : Liveborn Infant Condition : Stable Sex: Female IDENTIFICATION BABY A Verification Date/Time: 03/29/2019 20:27 ID Band Number: [id number] Mother's Name Verified: Yes Infant RN Verifying : E. Eribertolek RN/ J. Niebuhr RN WEIGHT/LENGTH BABY A Birthweight (gm): 3317 Weight (lb): 7 Infant Weight (oz): 5 Infant Length (in): 20.00 Length (cm): 50.80 CORD INFORMATION BABY A No. Cord Vessels: 3 Nuchal Cord : N/A Cord Blood Taken: Yes-For Storage (Mom's Blood type +) Suction: Mouth ASSESSMENT BABY A Complications: None Physical Findings at Delivery: Within Normal Limits Infant Respirations: Appears Normal Skin to Skin: Yes Mud Boss/ALS Called : No Care By: Olga Lidia Molina, RN Transferred To: Remains with Mother BABY B INFORMATION : N/A SIGNATURES Signature: with User ID: [email or web address]
[2019-03-30] MEDS: IBUPROFEN 800 MG TABLET PO SCH ×3 (05:37→22:10)
[2019-03-30 07:46] LABS: HEMATOCRIT 22.8 % (36.0-47.0); MEAN CORPUSCULAR HEMOGLOBIN 17.9 pg (27.0-33.4); MEAN CORPUSCULAR HGB CONC 30.5 g/dL (32.0-36.0); MEAN CORPUSCULAR VOLUME 59 fl (80-97); PLATELET COUNT 305 10^3/uL (150-450); RED CELL DISTRIBUTION WIDTH 20.5 % (11.5-14.0); WHITE BLOOD COUNT 19.4 10^3/uL (4.0-10.5)
--- NOTE | 2019-03-30 08:26 | PDOC PROGRESS REPORT ---
Subjective-OB Progress Note for:: 03/30/19 Physical Exam (OB) Vital Signs: Temp Pulse Resp BP Pulse Ox 97.7 F 98 14 139/75 H 99 03/30/19 07:52 03/30/19 07:52 03/30/19 07:52 03/30/19 07:52 03/30/19 07:52 Intake & Output 03/29/19 03/30/19 03/31/19 06:59 06:59 06:59 Intake Total 200 Balance 200 Weight 102.6 kg - General General Appearance: Alert In distress: None Note:: Was anemic in -non compliant in taking iron. Asymptomatic. - PIH/Pre-Eclampsia Clonus: Negative Headache: Absent Epigastric Pain: No Visual Changes: No - Lochia Lochia Amount: Scant < 10 ml Lochia Color: Rubra/Red - Abdomen Description: Soft, Round Hernia Present: No Bowel Sounds: Normoactive Flatus Presence: Present Stool: No Fundal Description: Firm, Midline Fundal Height: u/u - u/2 Objective-Diagnostic Laboratory: 03/30/19 07:09 03/29/19 03/29/19 03/29/19 08:45 10:05 10:05 WBC 14.8 H RBC 4.77 Hgb 8.6 L Hct 28.1 L MCV 59 L MCH 18.1 L MCHC 30.6 L RDW 20.3 H Plt Count 371 Seg Neutrophils % 79.2 H Urine Color YELLOW Urine Appearance CLEAR Urine pH 6.0 Ur Specific [place] 1.011 Urine Protein NEGATIVE Urine Glucose (UA) NEGATIVE Urine Ketones NEGATIVE Urine Blood MODERATE H Urine Nitrite NEGATIVE Ur Leukocyte Esterase NEGATIVE Blood Type O POSITIVE Antibody Screen NEGATIVE 03/30/19 07:09 WBC 19.4 H RBC 3.90 Hgb 7.0 L Hct 22.8 L MCV 59 L MCH 17.9 L MCHC 30.5 L RDW 20.5 H Plt Count 305 Seg Neutrophils % Urine Color Urine Appearance Urine pH Ur Specific [place] Urine Protein Urine Glucose (UA) Urine Ketones Urine Blood Urine Nitrite Ur Leukocyte Esterase Blood Type Antibody Screen
[2019-03-30] MEDS: FERROUS SULFATE 325 MG TABLET PO SCH ×2 (09:57→18:44)
[2019-03-30] MEDS: FAMOTIDINE 20 MG TABLET PO SCH ×2 (09:57→22:11)
[2019-03-30] MEDS: DOCUSATE SODIUM 100 MG CAPSULE PO SCH ×2 (09:58→18:44)
[2019-03-30] MEDS: PRENATAL VITAMIN W DHA CAPSULE PO SCH (09:58)
[2019-03-30] MEDS: SENNOSIDES/DOCUSATE 8.6-50 MG 1 EACH TABLET PO SCH (09:58)
[2019-03-30 13:26] LABS: PATH REVIEW PATHOLOGIST REVIEWED
[2019-03-31] MEDS: IBUPROFEN 800 MG TABLET PO SCH (05:45)
[2019-03-31 08:58] LABS: HEMATOCRIT 23.7 % (36.0-47.0); MEAN CORPUSCULAR HEMOGLOBIN 17.7 pg (27.0-33.4); MEAN CORPUSCULAR HGB CONC 29.9 g/dL (32.0-36.0); MEAN CORPUSCULAR VOLUME 59 fl (80-97); PLATELET COUNT 304 10^3/uL (150-450); RED BLOOD COUNT 4.01 10^6/uL (3.72-5.28); RED CELL DISTRIBUTION WIDTH 20.4 % (11.5-14.0); WHITE BLOOD COUNT 15.2 10^3/uL (4.0-10.5)
[2019-03-31 09:19] LABS: HEMOGLOBIN 7.1 g/dL (12.0-15.5)
[2019-03-31] MEDS: DOCUSATE SODIUM 100 MG CAPSULE PO SCH (11:08)
[2019-03-31] MEDS: FAMOTIDINE 20 MG TABLET PO SCH (11:08)
[2019-03-31] MEDS: FERROUS SULFATE 325 MG TABLET PO SCH (11:08)
[2019-03-31] MEDS: PRENATAL VITAMIN W DHA CAPSULE PO SCH (11:08)
[2019-03-31] MEDS: SENNOSIDES/DOCUSATE 8.6-50 MG 1 EACH TABLET PO SCH (11:08)
--- NOTE | 2019-03-31 11:45 | PDOC DISCHARGE SUMMARY ---
Impression - Admit/DC Date/PCP Admission Date/Primary Care Provider: 03/29/19 08:48 YESI RODRIGUEZ MD Discharge Date: 03/31/19 - Discharge Diagnosis (1) First degree laceration of perineum, delivered, current hospitalization Is this a current diagnosis for this admission?: Yes (2) History of anxiety Is this a current diagnosis for this admission?: Yes (3) Ruptured, membranes, premature Is this a current diagnosis for this admission?: Yes (4) Vaginal delivery Is this a current diagnosis for this admission?: Yes - Additional Information Discharge Diet: Regular Discharge Activity: Balance Activity w/Rest, Pelvic Rest Referrals: [facility] [Provider Group] Prescriptions: Ferrous Sulfate [Feosol 325 mg Tablet] 325 mg PO BID #60 tablet Ibuprofen [Motrin 800 mg Tablet] 800 mg PO Q8HP PRN #60 tablet PRN Reason: Home Medications: 95/Iron Fum/Folic/Dha [ + Dha Combo Pack] 1 tab PO DAILY 02/21/19 Ferrous Sulfate [Feosol 325 mg Tablet] 325 mg PO BID #60 tablet 03/31/19 Ibuprofen [Motrin 800 mg Tablet] 800 mg PO Q8HP PRN #60 tablet 03/31/19 HPI Gestational Age: 40+4 Reason(s) for Admission: PROM Procedures: NST Intrapartum Procedure(s): Spontaneous Vaginal Delivery Complication(s): Laceration-Perineal Laceration-Degree: 1st Hospital Course Hospital Course: admitted with ruptured membranes, received pitocin and underwent , stable today on PP day #2, denies sx of anemia. Results Laboratory Results: WBC 15.2 10^3/uL (4.0-10.5) H 03/31/19 08:05 RBC 4.01 10^6/uL (3.72-5.28) 03/31/19 08:05 Hgb 7.1 g/dL (12.0-15.5) L 03/31/19 08:05 Hct 23.7 % (36.0-47.0) L 03/31/19 08:05 MCV 59 fl (80-97) L 03/31/19 08:05 MCH 17.7 pg (27.0-33.4) L 03/31/19 08:05 MCHC 29.9 g/dL (32.0-36.0) L 03/31/19 08:05 RDW 20.4 % (11.5-14.0) H 03/31/19 08:05 Plt Count 304 10^3/uL (150-450) 03/31/19 08:05 Lymph % (Auto) 13.7 % (13-45) 03/29/19 10:05 [place] % (Auto) 6.2 % (3-13) 03/29/19 10:05 Eos % (Auto) 0.5 % (0-6) 03/29/19 10:05 Baso % (Auto) 0.4 % (0-2) 03/29/19 10:05 Absolute Neuts (auto) 11.7 10^3/uL (1.7-8.2) H 03/29/19 10:05 Absolute Lymphs (auto) 2.0 10^3/uL (0.5-4.7) 03/29/19 10:05 Absolute Monos (auto) 0.9 10^3/uL (0.1-1.4) 03/29/19 10:05 Absolute Eos (auto) 0.1 10^3/uL (0.0-0.6) 03/29/19 10:05 Absolute Basos (auto) 0.1 10^3/uL (0.0-0.2) 03/29/19 10:05 Seg Neutrophils % 79.2 % (42-78) H 03/29/19 10:05 Platelet Comment ADEQUATE 03/29/19 10:05 Polychromasia 1+ 03/29/19 10:05 Hypochromasia 2+ 03/29/19 10:05 Poikilocytosis 1+ 03/29/19 10:05 Anisocytosis 2+ 03/29/19 10:05 Microcytosis 4+ 03/29/19 10:05 Tear Drop Cells 1+ 03/29/19 10:05 Ovalocytes 1+ 03/29/19 10:05 Schistocytes SLIGHT 03/29/19 10:05 Urine Color YELLOW 03/29/19 08:45 Urine Appearance CLEAR 03/29/19 08:45 Urine pH 6.0 (5.0-9.0) 03/29/19 08:45 Ur Specific [place] 1.011 03/29/19 08:45 Urine Protein NEGATIVE mg/dL (NEGATIVE) 03/29/19 08:45 Urine Glucose (UA) NEGATIVE mg/dL (NEGATIVE) 03/29/19 08:45 Urine Ketones NEGATIVE mg/dL (NEGATIVE) 03/29/19 08:45 Urine Blood MODERATE (NEGATIVE) H 03/29/19 08:45 Urine Nitrite NEGATIVE (NEGATIVE) 03/29/19 08:45 Urine Bilirubin NEGATIVE (NEGATIVE) 03/29/19 08:45 Urine Urobilinogen NEGATIVE mg/dL (<2.0) 03/29/19 08:45 Ur Leukocyte Esterase NEGATIVE (NEGATIVE) 03/29/19 08:45 Urine Ascorbic Acid NEGATIVE (NEGATIVE) 03/29/19 08:45 Membranes Rupture POSITIVE (NEGATIVE) H 03/29/19 08:19 Urine Opiates Screen NEGATIVE 03/29/19 08:45 Urine Methadone Screen NEGATIVE 03/29/19 08:45 Ur Barbiturates Screen NEGATIVE 03/29/19 08:45 Ur Phencyclidine Scrn NEGATIVE 03/29/19 08:45 Ur Amphetamines Screen NEGATIVE 03/29/19 08:45 U Benzodiazepines Scrn NEGATIVE 03/29/19 08:45 Urine Cocaine Screen NEGATIVE 03/29/19 08:45 U Marijuana (THC) Screen NEGATIVE 03/29/19 08:45 RPR NONREACTIVE (NONREACTIVE) 03/29/19 10:05 Slides for Path Review PATHOLOGIST REVIEWED 03/29/19 10:05 Blood Type O POSITIVE 03/29/19 10:05 Antibody Screen NEGATIVE 03/29/19 10:05 Plan Plan of Treatment: f/u 4 weeks for PP check, earlier if sx anemia-discussed
[2019-03-31 11:51] VITALS: BP 124/74
== END 2019-03-31 12:55 | disposition home or self-care (01) | DRG 807 ==
LOC: LC 07:44 → LR 08:48 → 2S 22:22
PROVIDERS: ADMIT Student in an Organized Health Care Education/Training Program; ATTEND Student in an Organized Health Care Education/Training Program
PROC: 10E0XZZ Delivery of Products of Conception, External Approach (ICD-10-PCS; principal; 2019-03-29)
PROC: 0HQ9XZZ Repair Perineum Skin, External Approach (ICD-10-PCS; 2019-03-29)
DX: O99.214 Obesity complicating childbirth (principal); Z37.0 Single live birth; E66.9 Obesity, unspecified; Z3A.40 40 weeks gestation of pregnancy; O70.0 First degree perineal laceration during delivery; O99.02 Anemia complicating childbirth; D64.9 Anemia, unspecified; O99.344 Other mental disorders complicating childbirth; F41.9 Anxiety disorder, unspecified; Z88.6 Allergy status to analgesic agent
CPT/HCPCS: 36415; 80307; 81005; 84112; 85025; 85027; 86592; 86850; 86900; 86901; J1200; J2300; J2550; J2590; J3010; J3490

== ENCOUNTER 2019-09-24 22:40 | Emergency (ER) | payer OTHER ==
[2019-09-24 22:50] VITALS: BP 129/79
== END 2019-09-25 01:10 | disposition left against medical advice (07) ==
LOC: ER 22:40
DX: Z53.21 Procedure and treatment not carried out due to patient leaving prior to being seen by health care provider (principal)

== ENCOUNTER 2019-12-04 23:06 | Emergency (ER) | payer OTHER ==
[2019-12-04 23:12] VITALS: BP 142/67
== END 2019-12-05 04:22 | disposition left against medical advice (07) ==
LOC: ER 23:06
DX: Z53.21 Procedure and treatment not carried out due to patient leaving prior to being seen by health care provider (principal)